=== PATIENT | female | born 1960 | race Caucasian/White ===

== ENCOUNTER 2017-10-08 15:47 | Inpatient (IN) | payer BC ==
[2017-10-08] MEDS ORDERED: Sodium Chloride 0.9% 10 ML Syringe FLUSH PRN (16:00)
[2017-10-08] MEDS ORDERED: Ondansetron 4 MG/2 ML SDV IVPUSH ONE (16:29)
[2017-10-08] MEDS ORDERED: Sodium Chloride 0.9% 1,000 ML IV SCH (16:45)
[2017-10-08] MEDS ORDERED: Iopamidol 755 Mg/ML 75 ML Bottle IV ONE (17:22)
[2017-10-08] MEDS ORDERED: Diatrizoate Meglumine/Diatrizoate Sodium 37% 30 ML Bottle PO SCH (17:30)
[2017-10-08] MEDS ORDERED: Lidocaine 2% Jelly 5 ML Urojet ONE (20:00)
[2017-10-08] MEDS ORDERED: Lidocaine 2% Jelly 30 ML Tube MUCMEM STA (20:00)
[2017-10-08] MEDS ORDERED: Pantoprazole 40 MG Vial IVPUSH SCH (20:15)
--- NOTE | 2017-10-08 20:21 | PCM.HP ---
H&P History of Present Illness - General Date of Service: 10/08/17 Admit Problem/Dx: Admission Diagnosis/Problem Admission Diagnosis/Problem Small bowel obstruction Source of Information: Patient History Limitations: Reports: No Limitations - History of Present Illness Duration of Symptoms: Reports: Day(s): (2 days ago), Intermittent Location: Reports: Abdomen Quality: Reports: Pressure Severity: Moderate Worsens with: Reports: Eating (or drinking) Associated Symptoms: Reports: Nausea/Vomiting (at least 6 times today and 10 times yesterday) mid abd Pain Score (Numeric/FACES): 2 - Related Data Allergies/Adverse Reactions: Allergies Allergy/AdvReac Type Severity Reaction Status Date / Time Latex, Natural Rubber Allergy Rash Verified 10/08/17 18:13 Sulfa (Sulfonamide Allergy Cannot Verified 10/08/17 15:50 Antibiotics) Remember Home Medications: Home Meds Levothyroxine Sodium 50 mcg PO DAILY 06/06/13 [History] Omeprazole 20 mg PO DAILY 06/09/13 [History] Lisinopril 10 mg PO DAILY 10/08/17 [History] Ranitidine HCl [Ranitidine] 150 mg PO BID PRN 10/08/17 [History] Past Medical History Cardiovascular History: Reports: Hypertension Gastrointestinal History: Reports: Bowel Obstruction - Past Surgical History GI Surgical History: Reports: Appendectomy (3rd grade), Cholecystectomy Female Surgical History: Reports: Hysterectomy Social & Family History - Family History Family Medical History: Noncontributory - Tobacco Use Smoking Status *Q: Never Smoker - Caffeine Use Caffeine Use: Reports: Coffee - Recreational Drug Use Recreational Drug Use: No H&P Review of Systems - Review of Systems: Review Of Systems: See Below General: Denies: Fever, Chills HEENT: Reports: No Symptoms Pulmonary: Reports: Shortness of Breath (mild) Cardiovascular: Reports: No Symptoms Gastrointestinal: Reports: Abdominal Pain, Nausea, Vomiting Genitourinary: Reports: No Symptoms Psychiatric: Reports: No Symptoms Neurological: Reports: No Symptoms Exam - Exam Exam: See Below - Vital Signs Vital Signs: Last Vital Signs Temp 98.1 F 10/08/17 15:47 Pulse 116 H 10/08/17 15:47 Resp 20 10/08/17 15:47 BP 120/71 10/08/17 15:47 Pulse Ox 99 10/08/17 15:47 Weight: 53.524 kg - Exam General: Alert, Oriented, Mild Distress Lungs: Clear to Auscultation, Normal Respiratory Effort Cardiovascular: Regular Rate, Regular Rhythm GI/Abdominal Exam: Soft, No Mass, Distended (mild), Tender (mild), Other (lower midline incisio well healed). No: Hernia - Patient Data Lab Results Last 24 hrs: Laboratory Results - last 24 hr 10/08/17 10/08/17 10/08/17 Range/Units 16:20 16:20 16:20 WBC 11.2 (4.5-12.0) X10-3/uL RBC 4.82 (3.23-5.20) x10(6)uL Hgb 15.1 (11.5-15.5) g/dL Hct 44.2 (30.0-51.3) % MCV 91.8 (80-96) fL MCH 31.3 (27.7-33.6) pg MCHC 34.1 (32.2-35.4) g/dL RDW 12.0 (11.5-15.5) % Plt Count 340 (125-369) X10(3)uL MPV 8.3 (7.4-10.4) fL Neut % (Auto) 79.3 (46-82) % Lymph % (Auto) 10.2 L (13-37) % [place] % (Auto) 8.7 (4-12) % Eos % (Auto) 0 L (1.0-5.0) % Baso % (Auto) 2 (0-2) % Neut # (Auto) 8.9 H (1.6-8.3) # Lymph # (Auto) 1.1 (0.6-5.0) # [place] # (Auto) 1.0 (0.0-1.3) # Eos # (Auto) 0.0 (0.0-0.8) # Baso # (Auto) 0.2 (0.0-0.2) # D-Dimer, Quantitative 3.05 H (0.0-0.59) mg/LFEU Sodium (135-145) mmol/L Potassium (3.5-5.3) mmol/L Chloride (100-110) mmol/L Carbon Dioxide (21-32) mmol/L BUN (7-18) mg/dL Creatinine (0.55-1.02) mg/dL Est Cr Clr Drug Dosing mL/min Estimated GFR (MDRD) (>60) BUN/Creatinine Ratio (9-20) Glucose (80-116) mg/dL Lactic Acid (0.4-2.2) mmol/L Calcium (8.6-10.2) mg/dL Total Bilirubin (0.1-1.3) mg/dL AST (5-25) IU/L ALT (12-36) U/L Alkaline Phosphatase (56-112) IU/L Troponin I < 0.017 L (<0.017-0.056) ng/mL C-Reactive Protein (0.5-0.9) mg/dL NT-Pro-B Natriuret Pep 116 (<=125) pg/mL Total Protein (6.0-8.0) g/dL Albumin (3.5-5.2) g/dL Globulin g/dL Albumin/Globulin Ratio TSH, Ultra Sensitive (0.36-3.74) IU/mL Urine Color (YELLOW) Urine Appearance (CLEAR) Urine pH (5.0-6.5) Ur Specific [place] (1.010-1.025) Urine Protein (NEGATIVE) mg/dL Urine Glucose (UA) (NEGATIVE) mg/dL Urine Ketones (NEGATIVE) mg/dL Urine Occult Blood (NEGATIVE) Urine Nitrite (NEGATIVE) Urine Bilirubin (NEGATIVE) Urine Urobilinogen (NEGATIVE) mg/dL Ur Leukocyte Esterase (NEGATIVE) Urine RBC (0) Urine WBC (0) Ur Squamous Epith Cells (NS,R,O) Urine Bacteria (NS) Urine Mucus (NS) 10/08/17 10/08/17 10/08/17 Range/Units 16:20 16:20 16:20 WBC (4.5-12.0) X10-3/uL RBC (3.23-5.20) x10(6)uL Hgb (11.5-15.5) g/dL Hct (30.0-51.3) % MCV (80-96) fL MCH (27.7-33.6) pg MCHC (32.2-35.4) g/dL RDW (11.5-15.5) % Plt Count (125-369) X10(3)uL MPV (7.4-10.4) fL Neut % (Auto) (46-82) % Lymph % (Auto) (13-37) % [place] % (Auto) (4-12) % Eos % (Auto) (1.0-5.0) % Baso % (Auto) (0-2) % Neut # (Auto) (1.6-8.3) # Lymph # (Auto) (0.6-5.0) # [place] # (Auto) (0.0-1.3) # Eos # (Auto) (0.0-0.8) # Baso # (Auto) (0.0-0.2) # D-Dimer, Quantitative (0.0-0.59) mg/LFEU Sodium 137 (135-145) mmol/L Potassium 3.3 L (3.5-5.3) mmol/L Chloride 96 L (100-110) mmol/L Carbon Dioxide 31 (21-32) mmol/L BUN 31 H (7-18) mg/dL Creatinine 0.8 (0.55-1.02) mg/dL Est Cr Clr Drug Dosing 67.14 mL/min Estimated GFR (MDRD) > 60 (>60) BUN/Creatinine Ratio 38.8 H (9-20) Glucose 120 H (80-116) mg/dL Lactic Acid 1.7 (0.4-2.2) mmol/L Calcium 9.9 (8.6-10.2) mg/dL Total Bilirubin 0.9 (0.1-1.3) mg/dL AST 15 (5-25) IU/L ALT 16 (12-36) U/L Alkaline Phosphatase 73 (56-112) IU/L Troponin I (<0.017-0.056) ng/mL C-Reactive Protein 0.2 L (0.5-0.9) mg/dL NT-Pro-B Natriuret Pep (<=125) pg/mL Total Protein 7.7 (6.0-8.0) g/dL Albumin 4.1 (3.5-5.2) g/dL Globulin 3.6 g/dL Albumin/Globulin Ratio 1.1 TSH, Ultra Sensitive (0.36-3.74) IU/mL Urine Color (YELLOW) Urine Appearance (CLEAR) Urine pH (5.0-6.5) Ur Specific [place] (1.010-1.025) Urine Protein (NEGATIVE) mg/dL Urine Glucose (UA) (NEGATIVE) mg/dL Urine Ketones (NEGATIVE) mg/dL Urine Occult Blood (NEGATIVE) Urine Nitrite (NEGATIVE) Urine Bilirubin (NEGATIVE) Urine Urobilinogen (NEGATIVE) mg/dL Ur Leukocyte Esterase (NEGATIVE) Urine RBC (0) Urine WBC (0) Ur Squamous Epith Cells (NS,R,O) Urine Bacteria (NS) Urine Mucus (NS) 10/08/17 10/08/17 Range/Units 16:20 19:14 WBC (4.5-12.0) X10-3/uL RBC (3.23-5.20) x10(6)uL Hgb (11.5-15.5) g/dL Hct (30.0-51.3) % MCV (80-96) fL MCH (27.7-33.6) pg MCHC (32.2-35.4) g/dL RDW (11.5-15.5) % Plt Count (125-369) X10(3)uL MPV (7.4-10.4) fL Neut % (Auto) (46-82) % Lymph % (Auto) (13-37) % [place] % (Auto) (4-12) % Eos % (Auto) (1.0-5.0) % Baso % (Auto) (0-2) % Neut # (Auto) (1.6-8.3) # Lymph # (Auto) (0.6-5.0) # [place] # (Auto) (0.0-1.3) # Eos # (Auto) (0.0-0.8) # Baso # (Auto) (0.0-0.2) # D-Dimer, Quantitative (0.0-0.59) mg/LFEU Sodium (135-145) mmol/L Potassium (3.5-5.3) mmol/L Chloride (100-110) mmol/L Carbon Dioxide (21-32) mmol/L BUN (7-18) mg/dL Creatinine (0.55-1.02) mg/dL Est Cr Clr Drug Dosing mL/min Estimated GFR (MDRD) (>60) BUN/Creatinine Ratio (9-20) Glucose (80-116) mg/dL Lactic Acid (0.4-2.2) mmol/L Calcium (8.6-10.2) mg/dL Total Bilirubin (0.1-1.3) mg/dL AST (5-25) IU/L ALT (12-36) U/L Alkaline Phosphatase (56-112) IU/L Troponin I (<0.017-0.056) ng/mL C-Reactive Protein (0.5-0.9) mg/dL NT-Pro-B Natriuret Pep (<=125) pg/mL Total Protein (6.0-8.0) g/dL Albumin (3.5-5.2) g/dL Globulin g/dL Albumin/Globulin Ratio TSH, Ultra Sensitive 1.14 (0.36-3.74) IU/mL Urine Color Yellow (YELLOW) Urine Appearance Clear (CLEAR) Urine pH 7.0 H (5.0-6.5) Ur Specific [place] 1.010 (1.010-1.025) Urine Protein Negative (NEGATIVE) mg/dL Urine Glucose (UA) Normal (NEGATIVE) mg/dL Urine Ketones 50 H (NEGATIVE) mg/dL Urine Occult Blood Moderate H (NEGATIVE) Urine Nitrite Negative (NEGATIVE) Urine Bilirubin Small H (NEGATIVE) Urine Urobilinogen Normal (NEGATIVE) mg/dL Ur Leukocyte Esterase Small H (NEGATIVE) Urine RBC 0-5 (0) Urine WBC 0-5 (0) Ur Squamous Epith Cells Occasional (NS,R,O) Urine Bacteria Rare H (NS) Urine Mucus Few H (NS) Result Diagrams: 10/08/17 16:20 10/08/17 16:20 Imaging Impressions Last 24 hrs: CT chest normal CT abd shows SBO Problem List Initiated/Reviewed/Updated: Yes Orders Last 24hrs: Active Orders 24 hr Category Date Time Status Patient Status [ADT] Routine ADT 10/08/17 19:59 Ordered Antiembolic Devices [RC] .Routine Care 10/08/17 20:05 Ordered EKG Documentation Completion [RC] ASDIRECTED Care 10/08/17 16:00 Active Gastrointestinal Tube Mgmt [RC] QSHIFT Care 10/08/17 20:01 Ordered Oxygen Therapy [RC] PRN Care 10/08/17 19:59 Ordered Oxygen Therapy [RC] PRN Care 10/08/17 20:01 Ordered RT Incentive Spirometry [RC] Q2HWA Care 10/08/17 20:01 Ordered Up ad Carla [RC] ASDIRECTED Care 10/08/17 20:01 Ordered VTE/DVT Education [RC] Click to Edit Care 10/08/17 20:05 Ordered Vital Signs [RC] PER UNIT ROUTINE Care 10/08/17 19:59 Ordered Abdomen Pelvis w Cont [CT] Stat Exams 10/08/17 15:59 Taken Ang Chest [CT] Stat Exams 10/08/17 16:00 Ordered BASIC METABOLIC PANEL,BMP [CHEM] AM Lab 10/09/17 05:11 Ordered CBC WITH AUTO DIFF [HEME] AM Lab 10/09/17 05:11 Ordered URINALYSIS W/MICROSCOPIC [UA W/MICROSCOPIC] [URIN] Stat Lab 10/08/17 19:14 Ordered Dextrose 5%-Normal Saline with KCl 20 mEq @ 150 mL/Hr ( Med 10/08/17 20:15 Ordered 1000 mL) Dextrose 5%-0.9% NaCl with KCl [D5 NS with 20 mEq KCl] 1,000 ml IV ASDIRECTED Diatrizoate Keena/Diatrizoate Na [Gastrografin 37%] Med 10/08/17 17:30 Active 30 ml PO . DIRECTED Pantoprazole [ProTONIX IV] Med 10/08/17 20:15 Ordered 40 mg IVPUSH DAILY Sodium Chloride 0.9% [Normal Saline] 1,000 ml Med 10/08/17 16:45 Active IV ASDIRECTED Sodium Chloride 0.9% [Saline Flush] Med 10/08/17 16:00 Active 10 ml FLUSH ASDIRECTED PRN DVT/VTE Prophylaxis Reflex [OM.PC] Per Unit Routine Oth 10/08/17 20:04 Ordered Peripheral IV Insertion Adult [OM.PC] Routine Oth 10/08/17 16:00 Ordered Sequential Compression Device [OM.PC] Routine Oth 10/08/17 20:01 Ordered Resuscitation Status Routine Resus Stat 10/08/17 19:59 Ordered EKG 12 Lead [EK] Routine Ther 10/08/17 15:59 Ordered Medication Orders Diatrizoate Meglum/Diatrizoate Sod (Gastrografin 37%) 30 ml PO . DIRECTED MAGY Last Admin: 10/08/17 18:22 Dose: 30 ml Sodium Chloride (Normal Saline) 1,000 mls @ 125 mls/hr IV ASDIRECTED MAGY Last Admin: 10/08/17 16:43 Dose: 125 mls/hr Potassium Chloride/Dextrose/Sod Cl (D5 Ns With 20 Meq Kcl) 1,000 mls @ 150 mls/ hr IV ASDIRECTED MAGY Pantoprazole Sodium (Protonix Iv) 40 mg IVPUSH DAILY MAGY Sodium Chloride (Saline Flush) 10 ml FLUSH ASDIRECTED PRN PRN Reason: Keep Vein Open Last Admin: 10/08/17 16:35 Dose: 10 ml Assessment/Plan Comment:: SBO Will admit for NG suction, IV hydration and pain control
[2017-10-08] MEDS: Dextrose 5%-0.9% NaCl with KCl 1,000 ML IV SCH (20:46)
[2017-10-08] MEDS: Ketorolac 30 MG/ML SDV IVPUSH PRN (20:47)
--- NOTE | 2017-10-09 01:27 | ER ---
DATE SEEN: 10/08/2017 CHIEF COMPLAINT: Vomiting. HISTORY OF PRESENT ILLNESS: This is a 57-year-old female with vomiting for 2 days, unable to keep anything down, and nausea. She also complains of mild-to- moderate abdominal pressure and inability to pass any stool over the last 2 days. REVIEW OF SYSTEMS: Shortness of breath since this afternoon. She denies any chest pain; neither does she have any fever, cough, or cold symptoms. ALLERGIES: Latex, natural rubber, and sulfa. PAST MEDICAL HISTORY: She has had small-bowel obstruction 13 or 14 years. PAST SURGICAL HISTORY: She is status post hysterectomy. PHYSICAL EXAMINATION: GENERAL: She is well nourished. She is mildly dehydrated. VITAL SIGNS: Her pulse is 116. Her blood pressure is normal. ENT: Normal. NECK: Supple. CHEST: Clear. ABDOMEN: Soft. Tender, especially in the right lower quadrant, but no rebound or masses are palpable. LABORATORIES: White cell count was normal, and hemoglobin was normal. D-dimer 3.05. UA was negative. RADIOGRAPHIC STUDIES: CT of the chest was unremarkable. No evidence of PE per the exam that was done today. CT of the abdomen showed a closed-loop bowel obstruction. IMPRESSION: Small-bowel obstruction. PLAN: My plan is to consult with Dr. Augustin. EMERGENCY DEPARTMENT COURSE: I started an IV line and gave 1 L of normal saline and IV Zofran. /[id number] 2012 [id number] STAN/JAMIEL
[2017-10-09] MEDS: Dextrose 5%-0.9% NaCl with KCl 1,000 ML IV SCH ×5 (03:27→23:37)
[2017-10-09] MEDS ORDERED: Promethazine 6.25 MG in Sodium Chloride 0.9% 50 ML IV PRN (09:29)
--- NOTE | 2017-10-09 09:34 | PCM.PN ---
- General Info Date of Service: 10/09/17 Functional Status: Reports: Urinating. Denies: Pain Controlled (still at 09/20) - Review of Systems Gastrointestinal: Reports: Abdominal Pain, Nausea (despite NG, functioning well) . Denies: Flatus - Patient Data Vitals - Most Recent: Last Vital Signs Temp 98.7 F 10/09/17 00:00 Pulse 84 10/09/17 00:00 Resp 16 10/09/17 00:00 BP 120/69 10/09/17 00:00 Pulse Ox 97 10/09/17 00:00 Weight - Most Recent: 51.846 kg I&O - Last 24 Hours: Intake & Output 10/08/17 10/09/17 10/09/17 22:59 06:59 14:59 Intake Total 656 1196 Output Total 100 325 Balance 556 871 Lab Results Last 24 Hours: Laboratory Results - last 24 hr 10/08/17 10/08/17 10/08/17 Range/Units 16:20 16:20 16:20 WBC 11.2 (4.5-12.0) X10-3/uL RBC 4.82 (3.23-5.20) x10(6)uL Hgb 15.1 (11.5-15.5) g/dL Hct 44.2 (30.0-51.3) % MCV 91.8 (80-96) fL MCH 31.3 (27.7-33.6) pg MCHC 34.1 (32.2-35.4) g/dL RDW 12.0 (11.5-15.5) % Plt Count 340 (125-369) X10(3)uL MPV 8.3 (7.4-10.4) fL Neut % (Auto) 79.3 (46-82) % Lymph % (Auto) 10.2 L (13-37) % [place] % (Auto) 8.7 (4-12) % Eos % (Auto) 0 L (1.0-5.0) % Baso % (Auto) 2 (0-2) % Neut # (Auto) 8.9 H (1.6-8.3) # Lymph # (Auto) 1.1 (0.6-5.0) # [place] # (Auto) 1.0 (0.0-1.3) # Eos # (Auto) 0.0 (0.0-0.8) # Baso # (Auto) 0.2 (0.0-0.2) # D-Dimer, Quantitative 3.05 H (0.0-0.59) mg/LFEU Sodium (135-145) mmol/L Potassium (3.5-5.3) mmol/L Chloride (100-110) mmol/L Carbon Dioxide (21-32) mmol/L BUN (7-18) mg/dL Creatinine (0.55-1.02) mg/dL Est Cr Clr Drug Dosing mL/min Estimated GFR (MDRD) (>60) BUN/Creatinine Ratio (9-20) Glucose (80-116) mg/dL Lactic Acid (0.4-2.2) mmol/L Calcium (8.6-10.2) mg/dL Total Bilirubin (0.1-1.3) mg/dL AST (5-25) IU/L ALT (12-36) U/L Alkaline Phosphatase (56-112) IU/L Troponin I < 0.017 L (<0.017-0.056) ng/mL C-Reactive Protein (0.5-0.9) mg/dL NT-Pro-B Natriuret Pep 116 (<=125) pg/mL Total Protein (6.0-8.0) g/dL Albumin (3.5-5.2) g/dL Globulin g/dL Albumin/Globulin Ratio TSH, Ultra Sensitive (0.36-3.74) IU/mL Urine Color (YELLOW) Urine Appearance (CLEAR) Urine pH (5.0-6.5) Ur Specific [place] (1.010-1.025) Urine Protein (NEGATIVE) mg/dL Urine Glucose (UA) (NEGATIVE) mg/dL Urine Ketones (NEGATIVE) mg/dL Urine Occult Blood (NEGATIVE) Urine Nitrite (NEGATIVE) Urine Bilirubin (NEGATIVE) Urine Urobilinogen (NEGATIVE) mg/dL Ur Leukocyte Esterase (NEGATIVE) Urine RBC (0) Urine WBC (0) Ur Squamous Epith Cells (NS,R,O) Urine Bacteria (NS) Urine Mucus (NS) 10/08/17 10/08/17 10/08/17 Range/Units 16:20 16:20 16:20 WBC (4.5-12.0) X10-3/uL RBC (3.23-5.20) x10(6)uL Hgb (11.5-15.5) g/dL Hct (30.0-51.3) % MCV (80-96) fL MCH (27.7-33.6) pg MCHC (32.2-35.4) g/dL RDW (11.5-15.5) % Plt Count (125-369) X10(3)uL MPV (7.4-10.4) fL Neut % (Auto) (46-82) % Lymph % (Auto) (13-37) % [place] % (Auto) (4-12) % Eos % (Auto) (1.0-5.0) % Baso % (Auto) (0-2) % Neut # (Auto) (1.6-8.3) # Lymph # (Auto) (0.6-5.0) # [place] # (Auto) (0.0-1.3) # Eos # (Auto) (0.0-0.8) # Baso # (Auto) (0.0-0.2) # D-Dimer, Quantitative (0.0-0.59) mg/LFEU Sodium 137 (135-145) mmol/L Potassium 3.3 L (3.5-5.3) mmol/L Chloride 96 L (100-110) mmol/L Carbon Dioxide 31 (21-32) mmol/L BUN 31 H (7-18) mg/dL Creatinine 0.8 (0.55-1.02) mg/dL Est Cr Clr Drug Dosing 67.14 mL/min Estimated GFR (MDRD) > 60 (>60) BUN/Creatinine Ratio 38.8 H (9-20) Glucose 120 H (80-116) mg/dL Lactic Acid 1.7 (0.4-2.2) mmol/L Calcium 9.9 (8.6-10.2) mg/dL Total Bilirubin 0.9 (0.1-1.3) mg/dL AST 15 (5-25) IU/L ALT 16 (12-36) U/L Alkaline Phosphatase 73 (56-112) IU/L Troponin I (<0.017-0.056) ng/mL C-Reactive Protein 0.2 L (0.5-0.9) mg/dL NT-Pro-B Natriuret Pep (<=125) pg/mL Total Protein 7.7 (6.0-8.0) g/dL Albumin 4.1 (3.5-5.2) g/dL Globulin 3.6 g/dL Albumin/Globulin Ratio 1.1 TSH, Ultra Sensitive (0.36-3.74) IU/mL Urine Color (YELLOW) Urine Appearance (CLEAR) Urine pH (5.0-6.5) Ur Specific [place] (1.010-1.025) Urine Protein (NEGATIVE) mg/dL Urine Glucose (UA) (NEGATIVE) mg/dL Urine Ketones (NEGATIVE) mg/dL Urine Occult Blood (NEGATIVE) Urine Nitrite (NEGATIVE) Urine Bilirubin (NEGATIVE) Urine Urobilinogen (NEGATIVE) mg/dL Ur Leukocyte Esterase (NEGATIVE) Urine RBC (0) Urine WBC (0) Ur Squamous Epith Cells (NS,R,O) Urine Bacteria (NS) Urine Mucus (NS) 10/08/17 10/08/17 10/09/17 Range/Units 16:20 19:14 06:30 WBC 7.2 (4.5-12.0) X10-3/uL RBC 4.16 (3.23-5.20) x10(6)uL Hgb 12.9 (11.5-15.5) g/dL Hct 38.2 (30.0-51.3) % MCV 91.9 (80-96) fL MCH 31.0 (27.7-33.6) pg MCHC 33.7 (32.2-35.4) g/dL RDW 11.6 (11.5-15.5) % Plt Count 232 (125-369) X10(3)uL MPV 8.3 (7.4-10.4) fL Neut % (Auto) 78.4 (46-82) % Lymph % (Auto) 10.4 L (13-37) % [place] % (Auto) 10.0 (4-12) % Eos % (Auto) 1 (1.0-5.0) % Baso % (Auto) 0 (0-2) % Neut # (Auto) 5.6 (1.6-8.3) # Lymph # (Auto) 0.8 (0.6-5.0) # [place] # (Auto) 0.7 (0.0-1.3) # Eos # (Auto) 0.1 (0.0-0.8) # Baso # (Auto) 0.0 (0.0-0.2) # D-Dimer, Quantitative (0.0-0.59) mg/LFEU Sodium (135-145) mmol/L Potassium (3.5-5.3) mmol/L Chloride (100-110) mmol/L Carbon Dioxide (21-32) mmol/L BUN (7-18) mg/dL Creatinine (0.55-1.02) mg/dL Est Cr Clr Drug Dosing mL/min Estimated GFR (MDRD) (>60) BUN/Creatinine Ratio (9-20) Glucose (80-116) mg/dL Lactic Acid (0.4-2.2) mmol/L Calcium (8.6-10.2) mg/dL Total Bilirubin (0.1-1.3) mg/dL AST (5-25) IU/L ALT (12-36) U/L Alkaline Phosphatase (56-112) IU/L Troponin I (<0.017-0.056) ng/mL C-Reactive Protein (0.5-0.9) mg/dL NT-Pro-B Natriuret Pep (<=125) pg/mL Total Protein (6.0-8.0) g/dL Albumin (3.5-5.2) g/dL Globulin g/dL Albumin/Globulin Ratio TSH, Ultra Sensitive 1.14 (0.36-3.74) IU/mL Urine Color Yellow (YELLOW) Urine Appearance Clear (CLEAR) Urine pH 7.0 H (5.0-6.5) Ur Specific [place] 1.010 (1.010-1.025) Urine Protein Negative (NEGATIVE) mg/dL Urine Glucose (UA) Normal (NEGATIVE) mg/dL Urine Ketones 50 H (NEGATIVE) mg/dL Urine Occult Blood Moderate H (NEGATIVE) Urine Nitrite Negative (NEGATIVE) Urine Bilirubin Small H (NEGATIVE) Urine Urobilinogen Normal (NEGATIVE) mg/dL Ur Leukocyte Esterase Small H (NEGATIVE) Urine RBC 0-5 (0) Urine WBC 0-5 (0) Ur Squamous Epith Cells Occasional (NS,R,O) Urine Bacteria Rare H (NS) Urine Mucus Few H (NS) 10/09/17 Range/Units 06:30 WBC (4.5-12.0) X10-3/uL RBC (3.23-5.20) x10(6)uL Hgb (11.5-15.5) g/dL Hct (30.0-51.3) % MCV (80-96) fL MCH (27.7-33.6) pg MCHC (32.2-35.4) g/dL RDW (11.5-15.5) % Plt Count (125-369) X10(3)uL MPV (7.4-10.4) fL Neut % (Auto) (46-82) % Lymph % (Auto) (13-37) % [place] % (Auto) (4-12) % Eos % (Auto) (1.0-5.0) % Baso % (Auto) (0-2) % Neut # (Auto) (1.6-8.3) # Lymph # (Auto) (0.6-5.0) # [place] # (Auto) (0.0-1.3) # Eos # (Auto) (0.0-0.8) # Baso # (Auto) (0.0-0.2) # D-Dimer, Quantitative (0.0-0.59) mg/LFEU Sodium 141 (135-145) mmol/L Potassium 3.9 (3.5-5.3) mmol/L Chloride 102 D (100-110) mmol/L Carbon Dioxide 33 H (21-32) mmol/L BUN 28 H (7-18) mg/dL Creatinine 0.8 (0.55-1.02) mg/dL Est Cr Clr Drug Dosing 65.03 mL/min Estimated GFR (MDRD) > 60 (>60) BUN/Creatinine Ratio 35.0 H (9-20) Glucose 140 H (80-116) mg/dL Lactic Acid (0.4-2.2) mmol/L Calcium 8.7 (8.6-10.2) mg/dL Total Bilirubin (0.1-1.3) mg/dL AST (5-25) IU/L ALT (12-36) U/L Alkaline Phosphatase (56-112) IU/L Troponin I (<0.017-0.056) ng/mL C-Reactive Protein (0.5-0.9) mg/dL NT-Pro-B Natriuret Pep (<=125) pg/mL Total Protein (6.0-8.0) g/dL Albumin (3.5-5.2) g/dL Globulin g/dL Albumin/Globulin Ratio TSH, Ultra Sensitive (0.36-3.74) IU/mL Urine Color (YELLOW) Urine Appearance (CLEAR) Urine pH (5.0-6.5) Ur Specific Aneta (1.010-1.025) Urine Protein (NEGATIVE) mg/dL Urine Glucose (UA) (NEGATIVE) mg/dL Urine Ketones (NEGATIVE) mg/dL Urine Occult Blood (NEGATIVE) Urine Nitrite (NEGATIVE) Urine Bilirubin (NEGATIVE) Urine Urobilinogen (NEGATIVE) mg/dL Ur Leukocyte Esterase (NEGATIVE) Urine RBC (0) Urine WBC (0) Ur Squamous Epith Cells (NS,R,O) Urine Bacteria (NS) Urine Mucus (NS) Med Orders - Current: Current Medications Potassium Chloride/Dextrose/Sod Cl (D5 Ns With 20 Meq Kcl) 1,000 mls @ 150 mls/ hr IV Q6H [facility] Promethazine HCl 6.25 mg/ (Sodium Chloride) 50.25 mls @ 200 mls/hr IV Q6H PRN PRN Reason: Nausea/Vomiting Ketorolac Tromethamine (Toradol) 30 mg IVPUSH Q6H PRN PRN Reason: Pain (moderate 4-6) Stop: 10/13/17 20:22 Last Admin: 10/08/17 20:47 Dose: 30 mg Pantoprazole Sodium (Protonix Iv) 40 mg IVPUSH DAILY@2100 [facility] Sodium Chloride (Saline Flush) 10 ml FLUSH ASDIRECTED PRN PRN Reason: Keep Vein Open Last Admin: 10/08/17 16:35 Dose: 10 ml Discontinued Medications Diatrizoate Meglum/Diatrizoate Sod (Gastrografin 37%) 30 ml PO . DIRECTED [facility] Last Admin: 10/08/17 18:22 Dose: 30 ml Sodium Chloride (Normal Saline) 1,000 mls @ 125 mls/hr IV ASDIRECTED [facility] Last Admin: 10/08/17 16:43 Dose: 125 mls/hr Potassium Chloride/Dextrose/Sod Cl (D5 Ns With 20 Meq Kcl) 1,000 mls @ 150 mls/ hr IV ASDIRECTED [facility] Last Admin: 10/09/17 03:27 Dose: 150 mls/hr Iopamidol (Isovue-370 (76%)) 75 ml IV ONETIME ONE Stop: 10/08/17 17:23 Last Admin: 10/08/17 18:22 Dose: 75 ml Lidocaine HCl (Xylocaine 2% Jelly) Confirm Administered Dose 5 ml .ROUTE .STK- MED ONE Stop: 10/08/17 20:01 Last Admin: 10/08/17 20:35 Dose: Not Given Lidocaine HCl (Xylocaine 2% Jelly) 5 ml MUCMEM NOW STA Stop: 10/08/17 20:01 Last Admin: 10/08/17 20:00 Dose: 5 ml Ondansetron HCl (Zofran) 8 mg IVPUSH ONETIME ONE Stop: 10/08/17 16:30 Last Admin: 10/08/17 16:35 Dose: 8 mg Pantoprazole Sodium (Protonix Iv) 40 mg IVPUSH DAILY [facility] Last Admin: 10/08/17 20:23 Dose: 40 mg - Exam General: Alert, Oriented Lungs: Clear to Auscultation, Normal Respiratory Effort GI/Abdominal Exam: Soft, Distended, Tender (mild lower) - Problem List Review Problem List Initiated/Reviewed/Updated: Yes - My Orders Last 24 Hours: My Active Orders 10/08/17 19:59 Patient Status [ADT] Routine Oxygen Therapy [RC] PRN Vital Signs [RC] .PRN Resuscitation Status Routine 10/08/17 20:01 Gastrointestinal Tube Mgmt [RC] 08,16,00 RT Incentive Spirometry [RC] Q2HWA Up ad Carla [RC] ASDIRECTED Sequential Compression Device [OM.PC] Routine 10/08/17 20:04 DVT/VTE Prophylaxis Reflex [OM.PC] Per Unit Routine 10/08/17 20:05 Antiembolic Devices [RC] .Routine 10/08/17 20:22 Ketorolac [Toradol] 30 mg IVPUSH Q6H PRN 10/08/17 20:23 Intake and Output [RC] 06,14,22 10/09/17 09:29 Promethazine [Phenergan] 6.25 mg Sodium Chloride 0.9% [Normal Saline] 50 ml IV Q6H 10/09/17 09:30 Dextrose 5%-0.9% NaCl with KCl [D5 NS with 20 mEq KCl] 1,000 ml IV Q6H 10/09/17 21:00 Pantoprazole [ProTONIX IV] 40 mg IVPUSH DAILY@2100 - Assessment Assessment:: SBO - Plan Plan:: No improvement since last pm Will take to IR or expl lap / adhesiolysis Risks and complications reviewed, consent obtained
[2017-10-09] MEDS ORDERED: Scopolamine 1.5 MG Transdermal Patch TRDERM PRN (09:57)
[2017-10-09] MEDS ORDERED: Ondansetron 4 MG/2 ML SDV IVPUSH ONE ×2 (10:30→11:45)
[2017-10-09] MEDS ORDERED: Scopolamine 1.5 MG Transdermal Patch TRDERM ONE (10:30)
[2017-10-09] MEDS: Ketorolac 30 MG/ML SDV IVPUSH PRN ×2 (10:32→17:00)
[2017-10-09] MEDS: Promethazine 6.25 MG in Sodium Chloride 0.9% 100 ML IV PRN (10:45)
[2017-10-09] MEDS: Lactated Ringers 1,000 ML IV SCH ×2 (11:05→14:17)
[2017-10-09] MEDS ORDERED: cefOXitin 2 GM Vial IV ONE ×2 (11:30→11:45)
[2017-10-09] MEDS ORDERED: cefOXitin 2 GM in Sodium Chloride 0.9% 100 ML IV ONE (11:30)
[2017-10-09] MEDS ORDERED: Midazolam 1 MG/ML 2 ML SDV IV ONE (11:45)
[2017-10-09] MEDS ORDERED: Lactated Ringers 1,000 ML IV ONE (11:45)
[2017-10-09] MEDS ORDERED: Neostigmine Methylsulfate 10 MG/10 ML MDV IVPUSH ONE (11:45)
[2017-10-09] MEDS ORDERED: fentaNYL 100 MCG/2 ML SDV IV ONE (11:45)
[2017-10-09] MEDS ORDERED: Propofol 200 MG/20 ML SDV IV ONE (11:45)
[2017-10-09] MEDS ORDERED: Rocuronium 100 MG/10 ML MDV IV ONE (11:45)
[2017-10-09] MEDS ORDERED: Glycopyrrolate 0.2 MG/ML 2 ML SDV IV ONE (11:45)
--- NOTE | 2017-10-09 13:15 | PCM.OPNOTE ---
- General Post-Op/Procedure Note Date of Surgery/Procedure: 10/09/17 Operative Procedure(s): Expl Lap with Adhesiolysis Findings: SBO from Adhesions Pre Op Diagnosis: SBO Post-Op Diagnosis: Same Anesthesia Technique: General ET Tube Primary Surgeon: Jadon Augustin EBL in mLs: 25 Complications: None Condition: Stable Free Text/Narrative:: Intake & Output 10/08/17 10/09/17 10/09/17 22:59 06:59 14:59 Intake Total 656 1196 658 Output Total 100 325 Balance 556 871 659
[2017-10-09] MEDS ORDERED: HYDROmorphone 2 MG/ML SDV IV ONE (13:30)
--- NOTE | 2017-10-09 15:01 | OR ---
DATE OF OPERATION: 10/09/2017 SURGEON: Jadon Augustin MD PREOPERATIVE DIAGNOSIS: Small bowel obstruction. POSTOPERATIVE DIAGNOSES: Small bowel obstruction secondary to adhesions. PROCEDURE: Exploratory laparotomy with adhesiolysis. ANESTHESIA: General. DESCRIPTION OF PROCEDURE: The patient was brought to the operating room, where general endotracheal anesthesia was administered. Time-out was performed. Sharpe catheter was inserted. Nasogastric tube was already in place. The abdomen was prepped with ChloraPrep and draped sterilely. A lower midline incision was made through her previous scar and extended into the peritoneal cavity. There were omental adhesions to the entire lower midline incision that were taken down with sharp dissection. Once this was freed up, there were some areas of transverse colon adhered to small bowel that were freed up. At that time, I could place the colon and omentum in the upper abdomen and concentrate on the small bowel and the lower abdomen. Approximately, 500 mL of ascites fluid was present. All bowel was viable. The bowel was dilated proximally. I could feel a band that was tight around the loop and sharply transected this. This freed up the bowel significantly, and this appeared to be the point of obstruction that had a 30-cm loop of bowel caught in it causing the closed-loop obstruction. An extensive adhesiolysis was undertaken to ensure that there were no other sources of bowel obstruction. This was freed up from the ligament of Treitz to the ileocecal area. All bowel was viable and healthy. Bowel contents were milked back into the stomach and approximately 500 mL was removed. This aided in returning the bowel back into the peritoneal cavity and allowed easier closure. The midline incision was closed with running #2 Prolene. Skin was closed with luigi. A sterile dressing was applied. The patient tolerated the procedure well. Estimated blood loss was 20 mL. She returned to Postanesthesia in a stable condition. /[id number] RYAN/YUVAL
[2017-10-09] MEDS: Morphine 10 MG/ML Syringe IVPUSH PRN ×3 (18:48→23:37)
[2017-10-09] MEDS: Pantoprazole 40 MG Vial IVPUSH SCH (21:14)
[2017-10-10] MEDS: Ketorolac 30 MG/ML SDV IVPUSH PRN ×4 (02:32→22:59)
[2017-10-10] MEDS: Dextrose 5%-0.9% NaCl with KCl 1,000 ML IV SCH ×5 (06:30→21:44)
[2017-10-10] MEDS ORDERED: Sodium Chloride 0.9% 1,000 ML IV STA (06:59)
[2017-10-10] MEDS: Morphine 10 MG/ML Syringe IVPUSH PRN (08:00)
[2017-10-10] MEDS: Enoxaparin 40 MG/0.4 ML Syringe SUBCUT SCH (13:13)
--- NOTE | 2017-10-10 13:57 | PCM.SURGPN ---
- General Info Date of Service: 10/10/17 POD#: 1 Functional Status: Reports: Pain Controlled, Incentive Spirometry - Review of Systems General: Reports: No Symptoms Pulmonary: Reports: No Symptoms Gastrointestinal: Denies: Abdominal Pain, Flatus - Patient Data Vitals - Most Recent: Last Vital Signs Temp 98.5 F 10/10/17 13:08 Pulse 87 10/10/17 13:08 Resp 16 10/10/17 13:08 BP 118/60 10/10/17 13:08 Pulse Ox 98 10/10/17 13:08 Weight - Most Recent: 51.846 kg I&O - Last 24 Hours: Intake & Output 10/09/17 10/10/17 10/10/17 22:59 06:59 14:59 Intake Total 1013 Output Total 700 Balance 313 Med Orders - Current: Current Medications Enoxaparin Sodium (Lovenox) 40 mg SUBCUT DAILY@1200 [facility] Last Admin: 10/10/17 13:13 Dose: 40 mg Potassium Chloride/Dextrose/Sod Cl (D5 Ns With 20 Meq Kcl) 1,000 mls @ 150 mls/ hr IV Q6H [facility] Last Admin: 10/10/17 13:04 Dose: 150 mls/hr Lactated Ringer's (Ringers, Lactated) 1,000 mls @ 0 mls/hr IV ASDIRECTED [facility] Last Admin: 10/09/17 14:17 Dose: 10 mls/hr Promethazine HCl 6.25 mg/ (Sodium Chloride) 100.25 mls @ 398.785 mls/hr IV Q6H PRN PRN Reason: Nausea/Vomiting Last Admin: 10/09/17 10:45 Dose: 398.785 mls/hr Ketorolac Tromethamine (Toradol) 30 mg IVPUSH Q6H PRN PRN Reason: Pain (moderate 4-6) Stop: 10/13/17 20:22 Last Admin: 10/10/17 10:40 Dose: 30 mg Morphine Sulfate (Morphine) 2 mg IVPUSH Q1H PRN PRN Reason: PAIN Last Admin: 10/10/17 08:00 Dose: 2 mg Pantoprazole Sodium (Protonix Iv) 40 mg IVPUSH DAILY@2100 [facility] Last Admin: 10/09/17 21:14 Dose: 40 mg Sodium Chloride (Saline Flush) 10 ml FLUSH ASDIRECTED PRN PRN Reason: Keep Vein Open Last Admin: 10/08/17 16:35 Dose: 10 ml Discontinued Medications Cefoxitin Sodium (Mefoxin) 2 gm IV ONETIME ONE Stop: 10/09/17 11:31 Last Admin: 10/09/17 14:04 Dose: Not Given Cefoxitin Sodium (Mefoxin) 2 gm IV .STK-MED ONE Stop: 10/09/17 11:46 Diatrizoate Meglum/Diatrizoate Sod (Gastrografin 37%) 30 ml PO . DIRECTED [facility] Last Admin: 10/08/17 18:22 Dose: 30 ml Fentanyl (Sublimaze) 200 mcg IV .STK-MED ONE Stop: 10/09/17 11:46 Glycopyrrolate (Glycopyrrolate) 0.4 mg IV .STK-MED ONE Stop: 10/09/17 11:46 Hydromorphone HCl (Dilaudid) 2 mg IV .STK-MED ONE Stop: 10/09/17 13:31 Sodium Chloride (Normal Saline) 1,000 mls @ 125 mls/hr IV ASDIRECTED [facility] Last Admin: 10/08/17 16:43 Dose: 125 mls/hr Potassium Chloride/Dextrose/Sod Cl (D5 Ns With 20 Meq Kcl) 1,000 mls @ 150 mls/ hr IV ASDIRECTED [facility] Last Admin: 10/09/17 03:27 Dose: 150 mls/hr Promethazine HCl 6.25 mg/ (Sodium Chloride) 50.25 mls @ 200 mls/hr IV Q6H PRN PRN Reason: Nausea/Vomiting Cefoxitin Sodium 2 gm/ Sodium (Chloride) 100 mls @ 200 mls/hr IV ONETIME ONE Stop: 10/09/17 11:59 Lactated Ringer's (Ringers, Lactated) 1,000 mls @ as directed IV .STK-MED ONE Stop: 10/09/17 11:46 Sodium Chloride (Normal Saline) 1,000 mls @ 250 mls/hr IV [facility] Stop: 10/10/17 10:58 Last Admin: 10/10/17 07:27 Dose: 250 mls/hr Iopamidol (Isovue-370 (76%)) 75 ml IV ONETIME ONE Stop: 10/08/17 17:23 Last Admin: 10/08/17 18:22 Dose: 75 ml Lidocaine HCl (Xylocaine 2% Jelly) Confirm Administered Dose 5 ml .ROUTE .STK- MED ONE Stop: 10/08/17 20:01 Last Admin: 10/08/17 20:35 Dose: Not Given Lidocaine HCl (Xylocaine 2% Jelly) 5 ml MUCMEM NOW STA Stop: 10/08/17 20:01 Last Admin: 10/08/17 20:00 Dose: 5 ml Midazolam HCl (Versed 1 Mg/Ml) 2 mg IV .STK-MED ONE Stop: 10/09/17 11:46 Neostigmine Methylsulfate (Neostigmine Methylsulfate) 2 mg IVPUSH .STK-MED ONE Stop: 10/09/17 11:46 Ondansetron HCl (Zofran) 8 mg IVPUSH ONETIME ONE Stop: 10/08/17 16:30 Last Admin: 10/08/17 16:35 Dose: 8 mg Ondansetron HCl (Zofran) 4 mg IVPUSH ONETIME ONE Stop: 10/09/17 10:31 Last Admin: 10/09/17 11:17 Dose: 4 mg Ondansetron HCl (Zofran) 4 mg IVPUSH .STK-MED ONE Stop: 10/09/17 11:46 Pantoprazole Sodium (Protonix Iv) 40 mg IVPUSH DAILY [facility] Last Admin: 10/08/17 20:23 Dose: 40 mg Propofol (Diprivan 20 Ml) 300 mg IV .STK-MED ONE Stop: 10/09/17 11:46 Rocuronium [place] (Zemuron) 50 mg IV .STK-MED ONE Stop: 10/09/17 11:46 Scopolamine (Transderm-Scop) 1.5 mg TRDERM Q72H PRN PRN Reason: Nausea Scopolamine (Transderm-Scop) 1.5 mg TRDERM ONETIME ONE Stop: 10/09/17 10:31 Last Admin: 10/09/17 10:42 Dose: 1.5 mg - Exam Wound/Incisions: Healing Well, Dressing Dry and Intact Lungs: Clear to Auscultation GI/Abdominal Exam: Soft, Non-Tender, Distended (mild) - Problem List Review Problem List Initiated/Reviewed/Updated: Yes - My Orders Last 24 Hours: Active Orders 24 hr Category Date Time Status DC Sharpe Catheter [Urinary Catheter Removal] [RC] Per Care 10/10/17 13:54 Active Unit Routine Enoxaparin [Lovenox] Med 10/10/17 12:00 Active 40 mg SUBCUT DAILY@1200 Morphine Med 10/09/17 18:17 Active 2 mg IVPUSH Q1H PRN Pantoprazole [ProTONIX IV] Med 10/09/17 21:00 Active 40 mg IVPUSH DAILY@2100 Medication Orders Enoxaparin Sodium (Lovenox) 40 mg SUBCUT DAILY@1200 [facility] Last Admin: 10/10/17 13:13 Dose: 40 mg Potassium Chloride/Dextrose/Sod Cl (D5 Ns With 20 Meq Kcl) 1,000 mls @ 150 mls/ hr IV Q6H [facility] Last Admin: 10/10/17 13:04 Dose: 150 mls/hr Infusion: 10/10/17 13:04 Dose: 150 mls/hr Admin: 10/10/17 06:30 Dose: 150 mls/hr Infusion: 10/10/17 06:18 Dose: 150 mls/hr Admin: 10/09/17 23:37 Dose: 150 mls/hr Infusion: 10/09/17 23:23 Dose: 150 mls/hr Admin: 10/09/17 22:38 Dose: Admin: 10/09/17 16:42 Dose: 150 mls/hr Admin: 10/09/17 14:20 Dose: Lactated Ringer's (Ringers, Lactated) 1,000 mls @ 0 mls/hr IV ASDIRECTED [facility] Last Admin: 10/09/17 14:17 Dose: 10 mls/hr Infusion: 10/09/17 14:17 Dose: 10 mls/hr Admin: 10/09/17 11:05 Dose: 10 mls/hr Promethazine HCl 6.25 mg/ (Sodium Chloride) 100.25 mls @ 398.785 mls/hr IV Q6H PRN PRN Reason: Nausea/Vomiting Last Admin: 10/09/17 10:45 Dose: 398.785 mls/hr Ketorolac Tromethamine (Toradol) 30 mg IVPUSH Q6H PRN PRN Reason: Pain (moderate 4-6) Stop: 10/13/17 20:22 Last Admin: 10/10/17 10:40 Dose: 30 mg Admin: 10/10/17 02:32 Dose: 30 mg Admin: 10/09/17 17:00 Dose: 30 mg Admin: 10/09/17 10:32 Dose: 30 mg Admin: 10/08/17 20:47 Dose: 30 mg Morphine Sulfate (Morphine) 2 mg IVPUSH Q1H PRN PRN Reason: PAIN Last Admin: 10/10/17 08:00 Dose: 2 mg Admin: 10/09/17 23:37 Dose: 2 mg Admin: 10/09/17 20:56 Dose: 2 mg Admin: 10/09/17 18:48 Dose: 2 mg Pantoprazole Sodium (Protonix Iv) 40 mg IVPUSH DAILY@2100 [facility] Last Admin: 10/09/17 21:14 Dose: 40 mg Sodium Chloride (Saline Flush) 10 ml FLUSH ASDIRECTED PRN PRN Reason: Keep Vein Open Last Admin: 10/08/17 16:35 Dose: 10 ml - Assessment Assessment (Free Text/Narrative):: Doing well POD #1 D/C [facility]
[2017-10-10] MEDS: Pantoprazole 40 MG Vial IVPUSH SCH (20:43)
[2017-10-11] MEDS: Dextrose 5%-0.9% NaCl with KCl 1,000 ML IV SCH ×3 (03:00→16:31)
[2017-10-11] MEDS: Ketorolac 30 MG/ML SDV IVPUSH PRN ×3 (05:18→22:33)
[2017-10-11] MEDS: Enoxaparin 40 MG/0.4 ML Syringe SUBCUT SCH (12:01)
--- NOTE | 2017-10-11 16:15 | PCM.SURGPN ---
- General Info Date of Service: 10/11/17 POD#: 2 Functional Status: Reports: Pain Controlled, Ambulating, Incentive Spirometry - Review of Systems General: Reports: Other (throat pain from NG starting to come out, I reinserted and secured) Pulmonary: Reports: No Symptoms Cardiovascular: Reports: No Symptoms Gastrointestinal: Denies: Flatus - Patient Data Vitals - Most Recent: Last Vital Signs Temp 98.2 F 10/11/17 07:50 Pulse 82 10/11/17 07:50 Resp 18 10/11/17 07:50 BP 116/60 10/11/17 07:50 Pulse Ox 96 10/11/17 07:50 Weight - Most Recent: 51.846 kg I&O - Last 24 Hours: Intake & Output 10/11/17 10/11/17 10/11/17 06:59 14:59 22:59 Intake Total 1177 1338 Output Total 475 600 Balance 702 738 Med Orders - Current: Current Medications Enoxaparin Sodium (Lovenox) 40 mg SUBCUT DAILY@1200 [facility] Last Admin: 10/11/17 12:01 Dose: 40 mg Potassium Chloride/Dextrose/Sod Cl (D5 Ns With 20 Meq Kcl) 1,000 mls @ 125 mls/ hr IV Q6H [facility] Last Admin: 10/11/17 09:46 Dose: 150 mls/hr Lactated Ringer's (Ringers, Lactated) 1,000 mls @ 0 mls/hr IV ASDIRECTED [facility] Last Admin: 10/09/17 14:17 Dose: 10 mls/hr Promethazine HCl 6.25 mg/ (Sodium Chloride) 100.25 mls @ 398.785 mls/hr IV Q6H PRN PRN Reason: Nausea/Vomiting Last Admin: 10/09/17 10:45 Dose: 398.785 mls/hr Ketorolac Tromethamine (Toradol) 30 mg IVPUSH Q6H PRN PRN Reason: Pain (moderate 4-6) Stop: 10/13/17 20:22 Last Admin: 10/11/17 05:18 Dose: 30 mg Morphine Sulfate (Morphine) 2 mg IVPUSH Q1H PRN PRN Reason: PAIN Last Admin: 10/10/17 08:00 Dose: 2 mg Pantoprazole Sodium (Protonix Iv) 40 mg IVPUSH DAILY@2100 [facility] Last Admin: 10/10/17 20:43 Dose: 40 mg Sodium Chloride (Saline Flush) 10 ml FLUSH ASDIRECTED PRN PRN Reason: Keep Vein Open Last Admin: 10/08/17 16:35 Dose: 10 ml Discontinued Medications Cefoxitin Sodium (Mefoxin) 2 gm IV ONETIME ONE Stop: 10/09/17 11:31 Last Admin: 10/09/17 14:04 Dose: Not Given Cefoxitin Sodium (Mefoxin) 2 gm IV .STK-MED ONE Stop: 10/09/17 11:46 Diatrizoate Meglum/Diatrizoate Sod (Gastrografin 37%) 30 ml PO . DIRECTED [facility] Last Admin: 10/08/17 18:22 Dose: 30 ml Fentanyl (Sublimaze) 200 mcg IV .STK-MED ONE Stop: 10/09/17 11:46 Glycopyrrolate (Glycopyrrolate) 0.4 mg IV .STK-MED ONE Stop: 10/09/17 11:46 Hydromorphone HCl (Dilaudid) 2 mg IV .STK-MED ONE Stop: 10/09/17 13:31 Sodium Chloride (Normal Saline) 1,000 mls @ 125 mls/hr IV ASDIRECTED [facility] Last Admin: 10/08/17 16:43 Dose: 125 mls/hr Potassium Chloride/Dextrose/Sod Cl (D5 Ns With 20 Meq Kcl) 1,000 mls @ 150 mls/ hr IV ASDIRECTED [facility] Last Admin: 10/09/17 03:27 Dose: 150 mls/hr Promethazine HCl 6.25 mg/ (Sodium Chloride) 50.25 mls @ 200 mls/hr IV Q6H PRN PRN Reason: Nausea/Vomiting Cefoxitin Sodium 2 gm/ Sodium (Chloride) 100 mls @ 200 mls/hr IV ONETIME ONE Stop: 10/09/17 11:59 Lactated Ringer's (Ringers, Lactated) 1,000 mls @ as directed IV .STK-MED ONE Stop: 10/09/17 11:46 Sodium Chloride (Normal Saline) 1,000 mls @ 250 mls/hr IV NOW STA Stop: 10/10/17 10:58 Last Admin: 10/10/17 07:27 Dose: 250 mls/hr Iopamidol (Isovue-370 (76%)) 75 ml IV ONETIME ONE Stop: 10/08/17 17:23 Last Admin: 10/08/17 18:22 Dose: 75 ml Lidocaine HCl (Xylocaine 2% Jelly) Confirm Administered Dose 5 ml .ROUTE .STK- MED ONE Stop: 10/08/17 20:01 Last Admin: 10/08/17 20:35 Dose: Not Given Lidocaine HCl (Xylocaine 2% Jelly) 5 ml MUCMEM NOW STA Stop: 10/08/17 20:01 Last Admin: 10/08/17 20:00 Dose: 5 ml Midazolam HCl (Versed 1 Mg/Ml) 2 mg IV .STK-MED ONE Stop: 10/09/17 11:46 Neostigmine Methylsulfate (Neostigmine Methylsulfate) 2 mg IVPUSH .STK-MED ONE Stop: 10/09/17 11:46 Ondansetron HCl (Zofran) 8 mg IVPUSH ONETIME ONE Stop: 10/08/17 16:30 Last Admin: 10/08/17 16:35 Dose: 8 mg Ondansetron HCl (Zofran) 4 mg IVPUSH ONETIME ONE Stop: 10/09/17 10:31 Last Admin: 10/09/17 11:17 Dose: 4 mg Ondansetron HCl (Zofran) 4 mg IVPUSH .STK-MED ONE Stop: 10/09/17 11:46 Pantoprazole Sodium (Protonix Iv) 40 mg IVPUSH DAILY [facility] Last Admin: 10/08/17 20:23 Dose: 40 mg Propofol (Diprivan 20 Ml) 300 mg IV .STK-MED ONE Stop: 10/09/17 11:46 Rocuronium [place] (Zemuron) 50 mg IV .STK-MED ONE Stop: 10/09/17 11:46 Scopolamine (Transderm-Scop) 1.5 mg TRDERM Q72H PRN PRN Reason: Nausea Scopolamine (Transderm-Scop) 1.5 mg TRDERM ONETIME ONE Stop: 10/09/17 10:31 Last Admin: 10/09/17 10:42 Dose: 1.5 mg - Exam Wound/Incisions: Healing Well, Dressing Dry and Intact Lungs: Clear to Auscultation GI/Abdominal Exam: Soft, Distended (moderately) - Problem List Review Problem List Initiated/Reviewed/Updated: Yes - My Orders Last 24 Hours: Active Orders 24 hr Category Date Time Status BASIC METABOLIC PANEL,BMP [CHEM] Routine Lab 10/12/17 06:00 Ordered CBC W/O DIFF,HEMOGRAM [HEME] Routine Lab 10/12/17 06:00 Ordered Medication Orders Enoxaparin Sodium (Lovenox) 40 mg SUBCUT DAILY@1200 [facility] Last Admin: 10/11/17 12:01 Dose: 40 mg Admin: 10/10/17 13:13 Dose: 40 mg Potassium Chloride/Dextrose/Sod Cl (D5 Ns With 20 Meq Kcl) 1,000 mls @ 125 mls/ hr IV Q6H [facility] Last Admin: 10/11/17 09:46 Dose: 150 mls/hr Infusion: 10/11/17 09:41 Dose: 150 mls/hr Admin: 10/11/17 03:00 Dose: 150 mls/hr Infusion: 10/11/17 02:32 Dose: 150 mls/hr Admin: 10/10/17 21:44 Dose: Admin: 10/10/17 19:51 Dose: 150 mls/hr Infusion: 10/10/17 19:45 Dose: 150 mls/hr Admin: 10/10/17 16:30 Dose: Admin: 10/10/17 13:04 Dose: 150 mls/hr Infusion: 10/10/17 13:04 Dose: 150 mls/hr Admin: 10/10/17 06:30 Dose: 150 mls/hr Infusion: 10/10/17 06:18 Dose: 150 mls/hr Admin: 10/09/17 23:37 Dose: 150 mls/hr Infusion: 10/09/17 23:23 Dose: 150 mls/hr Admin: 10/09/17 22:38 Dose: Admin: 10/09/17 16:42 Dose: 150 mls/hr Admin: 10/09/17 14:20 Dose: Lactated Ringer's (Ringers, Lactated) 1,000 mls @ 0 mls/hr IV ASDIRECTED [facility] Last Admin: 10/09/17 14:17 Dose: 10 mls/hr Infusion: 10/09/17 14:17 Dose: 10 mls/hr Admin: 10/09/17 11:05 Dose: 10 mls/hr Promethazine HCl 6.25 mg/ (Sodium Chloride) 100.25 mls @ 398.785 mls/hr IV Q6H PRN PRN Reason: Nausea/Vomiting Last Admin: 10/09/17 10:45 Dose: 398.785 mls/hr Ketorolac Tromethamine (Toradol) 30 mg IVPUSH Q6H PRN PRN Reason: Pain (moderate 4-6) Stop: 10/13/17 20:22 Last Admin: 10/11/17 05:18 Dose: 30 mg Admin: 10/10/17 22:59 Dose: 30 mg Admin: 10/10/17 16:25 Dose: 30 mg Admin: 10/10/17 10:40 Dose: 30 mg Admin: 10/10/17 02:32 Dose: 30 mg Admin: 10/09/17 17:00 Dose: 30 mg Admin: 10/09/17 10:32 Dose: 30 mg Admin: 10/08/17 20:47 Dose: 30 mg Morphine Sulfate (Morphine) 2 mg IVPUSH Q1H PRN PRN Reason: PAIN Last Admin: 10/10/17 08:00 Dose: 2 mg Admin: 10/09/17 23:37 Dose: 2 mg Admin: 10/09/17 20:56 Dose: 2 mg Admin: 10/09/17 18:48 Dose: 2 mg Pantoprazole Sodium (Protonix Iv) 40 mg IVPUSH DAILY@2100 [facility] Last Admin: 10/10/17 20:43 Dose: 40 mg Admin: 10/09/17 21:14 Dose: 40 mg Sodium Chloride (Saline Flush) 10 ml FLUSH ASDIRECTED PRN PRN Reason: Keep Vein Open Last Admin: 10/08/17 16:35 Dose: 10 ml - Assessment Assessment (Free Text/Narrative):: Doing Well POD #2 - Plan Plan (Free Text/Narrative):: Await bowel function Check labs in am
[2017-10-11] MEDS: Pantoprazole 40 MG Vial IVPUSH SCH (21:25)
[2017-10-12] MEDS: Dextrose 5%-0.9% NaCl with KCl 1,000 ML IV SCH ×4 (00:31→17:15)
[2017-10-12] MEDS: Ketorolac 30 MG/ML SDV IVPUSH PRN ×3 (05:12→23:37)
--- NOTE | 2017-10-12 12:17 | PCM.SURGPN ---
- General Info Date of Service: 10/12/17 POD#: 3 Functional Status: Reports: Pain Controlled, Ambulating, Urinating - Review of Systems General: Reports: No Symptoms Gastrointestinal: Reports: No Symptoms. Denies: Flatus - Patient Data Vitals - Most Recent: Last Vital Signs Temp 97.7 F 10/12/17 09:00 Pulse 85 10/12/17 09:00 Resp 18 10/12/17 09:00 BP 125/49 L 10/12/17 09:00 Pulse Ox 100 10/12/17 09:00 Weight - Most Recent: 51.846 kg I&O - Last 24 Hours: Intake & Output 10/11/17 10/12/17 10/12/17 22:59 06:59 14:59 Intake Total 935 998 Output Total 1000 775 200 Balance -65 223 -200 Lab Results Last 24 Hrs: Laboratory Results - last 24 hr 10/12/17 10/12/17 Range/Units 06:50 06:50 WBC 5.5 (4.5-12.0) X10-3/uL RBC 3.43 (3.23-5.20) x10(6)uL Hgb 10.7 L (11.5-15.5) g/dL Hct 31.8 (30.0-51.3) % MCV 92.8 (80-96) fL MCH 31.3 (27.7-33.6) pg MCHC 33.7 (32.2-35.4) g/dL RDW 11.6 (11.5-15.5) % Plt Count 195 (125-369) X10(3)uL Sodium 141 (135-145) mmol/L Potassium 3.6 (3.5-5.3) mmol/L Chloride 107 D (100-110) mmol/L Carbon Dioxide 27 (21-32) mmol/L BUN 4 L D (7-18) mg/dL Creatinine 0.5 L (0.55-1.02) mg/dL Est Cr Clr Drug Dosing 104.05 mL/min Estimated GFR (MDRD) > 60 (>60) BUN/Creatinine Ratio 8.0 L (9-20) Glucose 112 (80-116) mg/dL Calcium 8.3 L (8.6-10.2) mg/dL Med Orders - Current: Current Medications Enoxaparin Sodium (Lovenox) 40 mg SUBCUT DAILY@1200 [facility] Last Admin: 10/11/17 12:01 Dose: 40 mg Lactated Ringer's (Ringers, Lactated) 1,000 mls @ 0 mls/hr IV ASDIRECTED [facility] Last Admin: 10/09/17 14:17 Dose: 10 mls/hr Promethazine HCl 6.25 mg/ (Sodium Chloride) 100.25 mls @ 398.785 mls/hr IV Q6H PRN PRN Reason: Nausea/Vomiting Last Admin: 10/09/17 10:45 Dose: 398.785 mls/hr Potassium Chloride/Dextrose/Sod Cl (D5 Ns With 20 Meq Kcl) 1,000 mls @ 125 mls/ hr IV Q8H [facility] Last Admin: 10/12/17 09:02 Dose: 125 mls/hr Ketorolac Tromethamine (Toradol) 30 mg IVPUSH Q6H PRN PRN Reason: Pain (moderate 4-6) Stop: 10/13/17 20:22 Last Admin: 10/12/17 05:12 Dose: 30 mg Morphine Sulfate (Morphine) 2 mg IVPUSH Q1H PRN PRN Reason: PAIN Last Admin: 10/10/17 08:00 Dose: 2 mg Pantoprazole Sodium (Protonix Iv) 40 mg IVPUSH DAILY@2100 [facility] Last Admin: 10/11/17 21:25 Dose: 40 mg Sodium Chloride (Saline Flush) 10 ml FLUSH ASDIRECTED PRN PRN Reason: Keep Vein Open Last Admin: 10/08/17 16:35 Dose: 10 ml Discontinued Medications Cefoxitin Sodium (Mefoxin) 2 gm IV ONETIME ONE Stop: 10/09/17 11:31 Last Admin: 10/09/17 14:04 Dose: Not Given Cefoxitin Sodium (Mefoxin) 2 gm IV .STK-MED ONE Stop: 10/09/17 11:46 Diatrizoate Meglum/Diatrizoate Sod (Gastrografin 37%) 30 ml PO . DIRECTED [facility] Last Admin: 10/08/17 18:22 Dose: 30 ml Fentanyl (Sublimaze) 200 mcg IV .STK-MED ONE Stop: 10/09/17 11:46 Glycopyrrolate (Glycopyrrolate) 0.4 mg IV .STK-MED ONE Stop: 10/09/17 11:46 Hydromorphone HCl (Dilaudid) 2 mg IV .STK-MED ONE Stop: 10/09/17 13:31 Sodium Chloride (Normal Saline) 1,000 mls @ 125 mls/hr IV ASDIRECTED [facility] Last Admin: 10/08/17 16:43 Dose: 125 mls/hr Potassium Chloride/Dextrose/Sod Cl (D5 Ns With 20 Meq Kcl) 1,000 mls @ 150 mls/ hr IV ASDIRECTED [facility] Last Admin: 10/09/17 03:27 Dose: 150 mls/hr Potassium Chloride/Dextrose/Sod Cl (D5 Ns With 20 Meq Kcl) 1,000 mls @ 125 mls/ hr IV Q6H [facility] Stop: 10/12/17 08:29 Last Admin: 10/12/17 08:37 Dose: Not Given Promethazine HCl 6.25 mg/ (Sodium Chloride) 50.25 mls @ 200 mls/hr IV Q6H PRN PRN Reason: Nausea/Vomiting Cefoxitin Sodium 2 gm/ Sodium (Chloride) 100 mls @ 200 mls/hr IV ONETIME ONE Stop: 10/09/17 11:59 Lactated Ringer's (Ringers, Lactated) 1,000 mls @ as directed IV .STK-MED ONE Stop: 10/09/17 11:46 Sodium Chloride (Normal Saline) 1,000 mls @ 250 mls/hr IV NOW STA Stop: 10/10/17 10:58 Last Admin: 10/10/17 07:27 Dose: 250 mls/hr Iopamidol (Isovue-370 (76%)) 75 ml IV ONETIME ONE Stop: 10/08/17 17:23 Last Admin: 10/08/17 18:22 Dose: 75 ml Lidocaine HCl (Xylocaine 2% Jelly) Confirm Administered Dose 5 ml .ROUTE .STK- MED ONE Stop: 10/08/17 20:01 Last Admin: 10/08/17 20:35 Dose: Not Given Lidocaine HCl (Xylocaine 2% Jelly) 5 ml MUCMEM NOW STA Stop: 10/08/17 20:01 Last Admin: 10/08/17 20:00 Dose: 5 ml Midazolam HCl (Versed 1 Mg/Ml) 2 mg IV .STK-MED ONE Stop: 10/09/17 11:46 Neostigmine Methylsulfate (Neostigmine Methylsulfate) 2 mg IVPUSH .STK-MED ONE Stop: 10/09/17 11:46 Ondansetron HCl (Zofran) 8 mg IVPUSH ONETIME ONE Stop: 10/08/17 16:30 Last Admin: 10/08/17 16:35 Dose: 8 mg Ondansetron HCl (Zofran) 4 mg IVPUSH ONETIME ONE Stop: 10/09/17 10:31 Last Admin: 10/09/17 11:17 Dose: 4 mg Ondansetron HCl (Zofran) 4 mg IVPUSH .STK-MED ONE Stop: 10/09/17 11:46 Pantoprazole Sodium (Protonix Iv) 40 mg IVPUSH DAILY [facility] Last Admin: 10/08/17 20:23 Dose: 40 mg Propofol (Diprivan 20 Ml) 300 mg IV .STK-MED ONE Stop: 10/09/17 11:46 Rocuronium [place] (Zemuron) 50 mg IV .STK-MED ONE Stop: 10/09/17 11:46 Scopolamine (Transderm-Scop) 1.5 mg TRDERM Q72H PRN PRN Reason: Nausea Scopolamine (Transderm-Scop) 1.5 mg TRDERM ONETIME ONE Stop: 10/09/17 10:31 Last Admin: 10/09/17 10:42 Dose: 1.5 mg - Exam Wound/Incisions: Healing Well, Dressing Dry and Intact General: Alert, Oriented Lungs: Clear to Auscultation GI/Abdominal Exam: Soft, Non-Tender - Problem List Review Problem List Initiated/Reviewed/Updated: Yes - My Orders Last 24 Hours: Active Orders 24 hr Category Date Time Status Dextrose 5%-0.9% NaCl with KCl [D5 NS with 20 mEq KCl] Med 10/12/17 08:30 Active 1,000 ml IV Q8H Medication Orders Enoxaparin Sodium (Lovenox) 40 mg SUBCUT DAILY@1200 [facility] Last Admin: 10/11/17 12:01 Dose: 40 mg Admin: 10/10/17 13:13 Dose: 40 mg Lactated Ringer's (Ringers, Lactated) 1,000 mls @ 0 mls/hr IV ASDIRECTED [facility] Last Admin: 10/09/17 14:17 Dose: 10 mls/hr Infusion: 10/09/17 14:17 Dose: 10 mls/hr Admin: 10/09/17 11:05 Dose: 10 mls/hr Promethazine HCl 6.25 mg/ (Sodium Chloride) 100.25 mls @ 398.785 mls/hr IV Q6H PRN PRN Reason: Nausea/Vomiting Last Admin: 10/09/17 10:45 Dose: 398.785 mls/hr Potassium Chloride/Dextrose/Sod Cl (D5 Ns With 20 Meq Kcl) 1,000 mls @ 125 mls/ hr IV Q8H [facility] Last Admin: 10/12/17 09:02 Dose: 125 mls/hr Ketorolac Tromethamine (Toradol) 30 mg IVPUSH Q6H PRN PRN Reason: Pain (moderate 4-6) Stop: 10/13/17 20:22 Last Admin: 10/12/17 05:12 Dose: 30 mg Admin: 10/11/17 22:33 Dose: 30 mg Admin: 10/11/17 16:39 Dose: 30 mg Admin: 10/11/17 05:18 Dose: 30 mg Admin: 10/10/17 22:59 Dose: 30 mg Admin: 10/10/17 16:25 Dose: 30 mg Admin: 10/10/17 10:40 Dose: 30 mg Admin: 10/10/17 02:32 Dose: 30 mg Admin: 10/09/17 17:00 Dose: 30 mg Admin: 10/09/17 10:32 Dose: 30 mg Admin: 10/08/17 20:47 Dose: 30 mg Morphine Sulfate (Morphine) 2 mg IVPUSH Q1H PRN PRN Reason: PAIN Last Admin: 10/10/17 08:00 Dose: 2 mg Admin: 10/09/17 23:37 Dose: 2 mg Admin: 10/09/17 20:56 Dose: 2 mg Admin: 10/09/17 18:48 Dose: 2 mg Pantoprazole Sodium (Protonix Iv) 40 mg IVPUSH DAILY@2100 [facility] Last Admin: 10/11/17 21:25 Dose: 40 mg Admin: 10/10/17 20:43 Dose: 40 mg Admin: 10/09/17 21:14 Dose: 40 mg Sodium Chloride (Saline Flush) 10 ml FLUSH ASDIRECTED PRN PRN Reason: Keep Vein Open Last Admin: 10/08/17 16:35 Dose: 10 ml - Assessment Assessment (Free Text/Narrative):: Doing well POD #3 - Plan Plan (Free Text/Narrative):: Await Bowel Function
[2017-10-12] MEDS: Enoxaparin 40 MG/0.4 ML Syringe SUBCUT SCH (13:15)
[2017-10-12] MEDS: Pantoprazole 40 MG Vial IVPUSH SCH (21:23)
[2017-10-13] MEDS: Dextrose 5%-0.9% NaCl with KCl 1,000 ML IV SCH ×3 (00:30→15:45)
[2017-10-13] MEDS: Ketorolac 30 MG/ML SDV IVPUSH PRN ×2 (07:48→17:07)
--- NOTE | 2017-10-13 10:08 | PCM.SURGPN ---
- General Info Date of Service: 10/13/17 Functional Status: Denies: New Symptoms - Review of Systems Pulmonary: Reports: No Symptoms Cardiovascular: Reports: No Symptoms Gastrointestinal: Reports: Other (did have a bowel movment today ) - Patient Data Vitals - Most Recent: Last Vital Signs Temp 36.8 C 10/13/17 03:37 Pulse 97 10/13/17 03:37 Resp 18 10/13/17 03:37 BP 142/77 H 10/13/17 03:37 Pulse Ox 97 10/13/17 03:37 Weight - Most Recent: 51.846 kg I&O - Last 24 Hours: Intake & Output 10/12/17 10/13/17 10/13/17 22:59 06:59 14:59 Intake Total 995 911 Output Total 1050 850 150 Balance -55 61 -150 Med Orders - Current: Current Medications Enoxaparin Sodium (Lovenox) 40 mg SUBCUT DAILY@1200 [facility] Last Admin: 10/12/17 13:15 Dose: 40 mg Lactated Ringer's (Ringers, Lactated) 1,000 mls @ 0 mls/hr IV ASDIRECTED [facility] Last Admin: 10/09/17 14:17 Dose: 10 mls/hr Promethazine HCl 6.25 mg/ (Sodium Chloride) 100.25 mls @ 398.785 mls/hr IV Q6H PRN PRN Reason: Nausea/Vomiting Last Admin: 10/09/17 10:45 Dose: 398.785 mls/hr Potassium Chloride/Dextrose/Sod Cl (D5 Ns With 20 Meq Kcl) 1,000 mls @ 125 mls/ hr IV Q8H [facility] Last Admin: 10/13/17 07:50 Dose: 125 mls/hr Ketorolac Tromethamine (Toradol) 30 mg IVPUSH Q6H PRN PRN Reason: Pain (moderate 4-6) Stop: 10/13/17 20:22 Last Admin: 10/13/17 07:48 Dose: 30 mg Morphine Sulfate (Morphine) 2 mg IVPUSH Q1H PRN PRN Reason: PAIN Last Admin: 10/10/17 08:00 Dose: 2 mg Pantoprazole Sodium (Protonix Iv) 40 mg IVPUSH DAILY@2100 [facility] Last Admin: 10/12/17 21:23 Dose: 40 mg Sodium Chloride (Saline Flush) 10 ml FLUSH ASDIRECTED PRN PRN Reason: Keep Vein Open Last Admin: 10/08/17 16:35 Dose: 10 ml Discontinued Medications Cefoxitin Sodium (Mefoxin) 2 gm IV ONETIME ONE Stop: 10/09/17 11:31 Last Admin: 10/09/17 14:04 Dose: Not Given Cefoxitin Sodium (Mefoxin) 2 gm IV .STK-MED ONE Stop: 10/09/17 11:46 Diatrizoate Meglum/Diatrizoate Sod (Gastrografin 37%) 30 ml PO . DIRECTED [facility] Last Admin: 10/08/17 18:22 Dose: 30 ml Fentanyl (Sublimaze) 200 mcg IV .STK-MED ONE Stop: 10/09/17 11:46 Glycopyrrolate (Glycopyrrolate) 0.4 mg IV .STK-MED ONE Stop: 10/09/17 11:46 Hydromorphone HCl (Dilaudid) 2 mg IV .STK-MED ONE Stop: 10/09/17 13:31 Sodium Chloride (Normal Saline) 1,000 mls @ 125 mls/hr IV ASDIRECTED [facility] Last Admin: 10/08/17 16:43 Dose: 125 mls/hr Potassium Chloride/Dextrose/Sod Cl (D5 Ns With 20 Meq Kcl) 1,000 mls @ 150 mls/ hr IV ASDIRECTED [facility] Last Admin: 10/09/17 03:27 Dose: 150 mls/hr Potassium Chloride/Dextrose/Sod Cl (D5 Ns With 20 Meq Kcl) 1,000 mls @ 125 mls/ hr IV Q6H [facility] Stop: 10/12/17 08:29 Last Admin: 10/12/17 08:37 Dose: Not Given Promethazine HCl 6.25 mg/ (Sodium Chloride) 50.25 mls @ 200 mls/hr IV Q6H PRN PRN Reason: Nausea/Vomiting Cefoxitin Sodium 2 gm/ Sodium (Chloride) 100 mls @ 200 mls/hr IV ONETIME ONE Stop: 10/09/17 11:59 Lactated Ringer's (Ringers, Lactated) 1,000 mls @ as directed IV .STK-MED ONE Stop: 10/09/17 11:46 Sodium Chloride (Normal Saline) 1,000 mls @ 250 mls/hr IV NOW STA Stop: 10/10/17 10:58 Last Admin: 10/10/17 07:27 Dose: 250 mls/hr Iopamidol (Isovue-370 (76%)) 75 ml IV ONETIME ONE Stop: 10/08/17 17:23 Last Admin: 10/08/17 18:22 Dose: 75 ml Lidocaine HCl (Xylocaine 2% Jelly) Confirm Administered Dose 5 ml .ROUTE .STK- MED ONE Stop: 10/08/17 20:01 Last Admin: 10/08/17 20:35 Dose: Not Given Lidocaine HCl (Xylocaine 2% Jelly) 5 ml MUCMEM NOW STA Stop: 10/08/17 20:01 Last Admin: 10/08/17 20:00 Dose: 5 ml Midazolam HCl (Versed 1 Mg/Ml) 2 mg IV .STK-MED ONE Stop: 10/09/17 11:46 Neostigmine Methylsulfate (Neostigmine Methylsulfate) 2 mg IVPUSH .STK-MED ONE Stop: 10/09/17 11:46 Ondansetron HCl (Zofran) 8 mg IVPUSH ONETIME ONE Stop: 10/08/17 16:30 Last Admin: 10/08/17 16:35 Dose: 8 mg Ondansetron HCl (Zofran) 4 mg IVPUSH ONETIME ONE Stop: 10/09/17 10:31 Last Admin: 10/09/17 11:17 Dose: 4 mg Ondansetron HCl (Zofran) 4 mg IVPUSH .STK-MED ONE Stop: 10/09/17 11:46 Pantoprazole Sodium (Protonix Iv) 40 mg IVPUSH DAILY [facility] Last Admin: 10/08/17 20:23 Dose: 40 mg Propofol (Diprivan 20 Ml) 300 mg IV .STK-MED ONE Stop: 10/09/17 11:46 Rocuronium [place] (Zemuron) 50 mg IV .STK-MED ONE Stop: 10/09/17 11:46 Scopolamine (Transderm-Scop) 1.5 mg TRDERM Q72H PRN PRN Reason: Nausea Scopolamine (Transderm-Scop) 1.5 mg TRDERM ONETIME ONE Stop: 10/09/17 10:31 Last Admin: 10/09/17 10:42 Dose: 1.5 mg - Exam Wound/Incisions: Healing Well, No Drainage. No: Erythema Lungs: Clear to Auscultation, Normal Respiratory Effort Cardiovascular: Regular Rate, Regular Rhythm GI/Abdominal Exam: Distended (mild ), Tender (along the incision ), Abnormal Bowel Sounds (hypoactive ). No: Guarding, Rigid, Rebound Skin: Warm, Intact - Problem List & Annotations (1) Small bowel obstruction due to adhesions SNOMED Code(s): 408332607 Code(s): K56.50 - INTESTNL ADHESIONS, UNSP TO PARTIAL VERSUS COMPLETE OBST Status: Resolved Current Visit: Yes - Problem List Review Problem List Initiated/Reviewed/Updated: Yes - My Orders Last 24 Hours: Active Orders 24 hr Category Date Time Status Ambulate [RC] Q4HNV Care 10/13/17 10:06 Ordered Medication Orders Enoxaparin Sodium (Lovenox) 40 mg SUBCUT DAILY@1200 [facility] Last Admin: 10/12/17 13:15 Dose: 40 mg Admin: 10/11/17 12:01 Dose: 40 mg Admin: 10/10/17 13:13 Dose: 40 mg Lactated Ringer's (Ringers, Lactated) 1,000 mls @ 0 mls/hr IV ASDIRECTED [facility] Last Admin: 10/09/17 14:17 Dose: 10 mls/hr Infusion: 10/09/17 14:17 Dose: 10 mls/hr Admin: 10/09/17 11:05 Dose: 10 mls/hr Promethazine HCl 6.25 mg/ (Sodium Chloride) 100.25 mls @ 398.785 mls/hr IV Q6H PRN PRN Reason: Nausea/Vomiting Last Admin: 10/09/17 10:45 Dose: 398.785 mls/hr Potassium Chloride/Dextrose/Sod Cl (D5 Ns With 20 Meq Kcl) 1,000 mls @ 125 mls/ hr IV Q8H [facility] Last Admin: 10/13/17 07:50 Dose: 125 mls/hr Infusion: 10/13/17 07:50 Dose: 125 mls/hr Admin: 10/13/17 00:30 Dose: 125 mls/hr Infusion: 10/13/17 00:30 Dose: 125 mls/hr Admin: 10/12/17 17:15 Dose: 125 mls/hr Infusion: 10/12/17 17:02 Dose: 125 mls/hr Admin: 10/12/17 09:02 Dose: 125 mls/hr Ketorolac Tromethamine (Toradol) 30 mg IVPUSH Q6H PRN PRN Reason: Pain (moderate 4-6) Stop: 10/13/17 20:22 Last Admin: 10/13/17 07:48 Dose: 30 mg Admin: 10/12/17 23:37 Dose: 30 mg Admin: 10/12/17 17:14 Dose: 30 mg Admin: 10/12/17 05:12 Dose: 30 mg Admin: 10/11/17 22:33 Dose: 30 mg Admin: 10/11/17 16:39 Dose: 30 mg Admin: 10/11/17 05:18 Dose: 30 mg Admin: 10/10/17 22:59 Dose: 30 mg Admin: 10/10/17 16:25 Dose: 30 mg Admin: 10/10/17 10:40 Dose: 30 mg Admin: 10/10/17 02:32 Dose: 30 mg Admin: 10/09/17 17:00 Dose: 30 mg Admin: 10/09/17 10:32 Dose: 30 mg Admin: 10/08/17 20:47 Dose: 30 mg Morphine Sulfate (Morphine) 2 mg IVPUSH Q1H PRN PRN Reason: PAIN Last Admin: 10/10/17 08:00 Dose: 2 mg Admin: 10/09/17 23:37 Dose: 2 mg Admin: 10/09/17 20:56 Dose: 2 mg Admin: 10/09/17 18:48 Dose: 2 mg Pantoprazole Sodium (Protonix Iv) 40 mg IVPUSH DAILY@2100 [facility] Last Admin: 10/12/17 21:23 Dose: 40 mg Admin: 10/11/17 21:25 Dose: 40 mg Admin: 10/10/17 20:43 Dose: 40 mg Admin: 10/09/17 21:14 Dose: 40 mg Sodium Chloride (Saline Flush) 10 ml FLUSH ASDIRECTED PRN PRN Reason: Keep Vein Open Last Admin: 10/08/17 16:35 Dose: 10 ml - Assessment Assessment (Free Text/Narrative):: Though she has had a bowel movement still has some mild distention and her bowel sounds are a little quite. - Plan Plan (Free Text/Narrative):: will continue ice chips for now ambulate
[2017-10-13] MEDS: Enoxaparin 40 MG/0.4 ML Syringe SUBCUT SCH (11:31)
[2017-10-13] MEDS: Promethazine 6.25 MG in Sodium Chloride 0.9% 100 ML IV PRN (18:56)
[2017-10-13] MEDS: Pantoprazole 40 MG Vial IVPUSH SCH (21:22)
[2017-10-14] MEDS: Dextrose 5%-0.9% NaCl with KCl 1,000 ML IV SCH ×2 (00:11→07:36)
--- NOTE | 2017-10-14 08:39 | PCM.SURGPN ---
- General Info Date of Service: 10/14/17 Functional Status: Reports: Pain Controlled, Ambulating, Urinating - Review of Systems Pulmonary: Reports: No Symptoms Cardiovascular: Reports: No Symptoms Gastrointestinal: Reports: Flatus - Patient Data Vitals - Most Recent: Last Vital Signs Temp 36.7 C 10/14/17 07:36 Pulse 91 10/14/17 07:36 Resp 20 10/14/17 07:36 BP 132/80 10/14/17 07:36 Pulse Ox 98 10/14/17 07:36 Weight - Most Recent: 51.846 kg I&O - Last 24 Hours: Intake & Output 10/13/17 10/14/17 10/14/17 22:59 06:59 14:59 Intake Total 923 992 Output Total 900 700 Balance 23 292 Med Orders - Current: Current Medications Enoxaparin Sodium (Lovenox) 40 mg SUBCUT DAILY@1200 [facility] Last Admin: 10/13/17 11:31 Dose: 40 mg Lactated Ringer's (Ringers, Lactated) 1,000 mls @ 0 mls/hr IV ASDIRECTED [facility] Last Admin: 10/09/17 14:17 Dose: 10 mls/hr Promethazine HCl 6.25 mg/ (Sodium Chloride) 100.25 mls @ 398.785 mls/hr IV Q6H PRN PRN Reason: Nausea/Vomiting Last Admin: 10/13/17 18:56 Dose: 398.785 mls/hr Potassium Chloride/Dextrose/Sod Cl (D5 Ns With 20 Meq Kcl) 1,000 mls @ 125 mls/ hr IV Q8H [facility] Last Admin: 10/14/17 07:36 Dose: 125 mls/hr Morphine Sulfate (Morphine) 2 mg IVPUSH Q1H PRN PRN Reason: PAIN Last Admin: 10/10/17 08:00 Dose: 2 mg Pantoprazole Sodium (Protonix Iv) 40 mg IVPUSH DAILY@2100 [facility] Last Admin: 10/13/17 21:22 Dose: 40 mg Sodium Chloride (Saline Flush) 10 ml FLUSH ASDIRECTED PRN PRN Reason: Keep Vein Open Last Admin: 10/08/17 16:35 Dose: 10 ml Discontinued Medications Cefoxitin Sodium (Mefoxin) 2 gm IV ONETIME ONE Stop: 10/09/17 11:31 Last Admin: 10/09/17 14:04 Dose: Not Given Cefoxitin Sodium (Mefoxin) 2 gm IV .STK-MED ONE Stop: 10/09/17 11:46 Diatrizoate Meglum/Diatrizoate Sod (Gastrografin 37%) 30 ml PO . DIRECTED [facility] Last Admin: 10/08/17 18:22 Dose: 30 ml Fentanyl (Sublimaze) 200 mcg IV .STK-MED ONE Stop: 10/09/17 11:46 Glycopyrrolate (Glycopyrrolate) 0.4 mg IV .STK-MED ONE Stop: 10/09/17 11:46 Hydromorphone HCl (Dilaudid) 2 mg IV .STK-MED ONE Stop: 10/09/17 13:31 Sodium Chloride (Normal Saline) 1,000 mls @ 125 mls/hr IV ASDIRECTED [facility] Last Admin: 10/08/17 16:43 Dose: 125 mls/hr Potassium Chloride/Dextrose/Sod Cl (D5 Ns With 20 Meq Kcl) 1,000 mls @ 150 mls/ hr IV ASDIRECTED [facility] Last Admin: 10/09/17 03:27 Dose: 150 mls/hr Potassium Chloride/Dextrose/Sod Cl (D5 Ns With 20 Meq Kcl) 1,000 mls @ 125 mls/ hr IV Q6H [facility] Stop: 10/12/17 08:29 Last Admin: 10/12/17 08:37 Dose: Not Given Promethazine HCl 6.25 mg/ (Sodium Chloride) 50.25 mls @ 200 mls/hr IV Q6H PRN PRN Reason: Nausea/Vomiting Cefoxitin Sodium 2 gm/ Sodium (Chloride) 100 mls @ 200 mls/hr IV ONETIME ONE Stop: 10/09/17 11:59 Lactated Ringer's (Ringers, Lactated) 1,000 mls @ as directed IV .STK-MED ONE Stop: 10/09/17 11:46 Sodium Chloride (Normal Saline) 1,000 mls @ 250 mls/hr IV NOW STA Stop: 10/10/17 10:58 Last Admin: 10/10/17 07:27 Dose: 250 mls/hr Iopamidol (Isovue-370 (76%)) 75 ml IV ONETIME ONE Stop: 10/08/17 17:23 Last Admin: 10/08/17 18:22 Dose: 75 ml Ketorolac Tromethamine (Toradol) 30 mg IVPUSH Q6H PRN PRN Reason: Pain (moderate 4-6) Stop: 10/13/17 20:22 Last Admin: 10/13/17 17:07 Dose: 30 mg Lidocaine HCl (Xylocaine 2% Jelly) Confirm Administered Dose 5 ml .ROUTE .STK- MED ONE Stop: 10/08/17 20:01 Last Admin: 10/08/17 20:35 Dose: Not Given Lidocaine HCl (Xylocaine 2% Jelly) 5 ml MUCMEM NOW STA Stop: 10/08/17 20:01 Last Admin: 10/08/17 20:00 Dose: 5 ml Midazolam HCl (Versed 1 Mg/Ml) 2 mg IV .STK-MED ONE Stop: 10/09/17 11:46 Neostigmine Methylsulfate (Neostigmine Methylsulfate) 2 mg IVPUSH .STK-MED ONE Stop: 10/09/17 11:46 Ondansetron HCl (Zofran) 8 mg IVPUSH ONETIME ONE Stop: 10/08/17 16:30 Last Admin: 10/08/17 16:35 Dose: 8 mg Ondansetron HCl (Zofran) 4 mg IVPUSH ONETIME ONE Stop: 10/09/17 10:31 Last Admin: 10/09/17 11:17 Dose: 4 mg Ondansetron HCl (Zofran) 4 mg IVPUSH .STK-MED ONE Stop: 10/09/17 11:46 Pantoprazole Sodium (Protonix Iv) 40 mg IVPUSH DAILY [facility] Last Admin: 10/08/17 20:23 Dose: 40 mg Propofol (Diprivan 20 Ml) 300 mg IV .STK-MED ONE Stop: 10/09/17 11:46 Rocuronium [place] (Zemuron) 50 mg IV .STK-MED ONE Stop: 10/09/17 11:46 Scopolamine (Transderm-Scop) 1.5 mg TRDERM Q72H PRN PRN Reason: Nausea Scopolamine (Transderm-Scop) 1.5 mg TRDERM ONETIME ONE Stop: 10/09/17 10:31 Last Admin: 10/09/17 10:42 Dose: 1.5 mg - Exam Wound/Incisions: Healing Well, Dressing Dry and Intact Lungs: Clear to Auscultation, Normal Respiratory Effort Cardiovascular: Regular Rate, Regular Rhythm GI/Abdominal Exam: Normal Bowel Sounds, Soft. No: Distended (much better ) - Problem List & Annotations (1) Small bowel obstruction due to adhesions SNOMED Code(s): 083574421 Code(s): K56.50 - INTESTNL ADHESIONS, UNSP TO PARTIAL VERSUS COMPLETE OBST Status: Resolved Current Visit: Yes - Problem List Review Problem List Initiated/Reviewed/Updated: Yes - My Orders Last 24 Hours: Active Orders 24 hr Category Date Time Status Ambulate [RC] Q4HHI Care 10/13/17 10:06 Active Medication Orders Enoxaparin Sodium (Lovenox) 40 mg SUBCUT DAILY@1200 [facility] Last Admin: 10/13/17 11:31 Dose: 40 mg Admin: 10/12/17 13:15 Dose: 40 mg Admin: 10/11/17 12:01 Dose: 40 mg Admin: 10/10/17 13:13 Dose: 40 mg Lactated Ringer's (Ringers, Lactated) 1,000 mls @ 0 mls/hr IV ASDIRECTED [facility] Last Admin: 10/09/17 14:17 Dose: 10 mls/hr Infusion: 10/09/17 14:17 Dose: 10 mls/hr Admin: 10/09/17 11:05 Dose: 10 mls/hr Promethazine HCl 6.25 mg/ (Sodium Chloride) 100.25 mls @ 398.785 mls/hr IV Q6H PRN PRN Reason: Nausea/Vomiting Last Admin: 10/13/17 18:56 Dose: 398.785 mls/hr Admin: 10/09/17 10:45 Dose: 398.785 mls/hr Potassium Chloride/Dextrose/Sod Cl (D5 Ns With 20 Meq Kcl) 1,000 mls @ 125 mls/ hr IV Q8H [facility] Last Admin: 10/14/17 07:36 Dose: 125 mls/hr Infusion: 10/14/17 07:36 Dose: 125 mls/hr Admin: 10/14/17 00:11 Dose: 125 mls/hr Infusion: 10/13/17 23:45 Dose: 125 mls/hr Admin: 10/13/17 15:45 Dose: 125 mls/hr Infusion: 10/13/17 15:45 Dose: 125 mls/hr Admin: 10/13/17 07:50 Dose: 125 mls/hr Infusion: 10/13/17 07:50 Dose: 125 mls/hr Admin: 10/13/17 00:30 Dose: 125 mls/hr Infusion: 10/13/17 00:30 Dose: 125 mls/hr Admin: 10/12/17 17:15 Dose: 125 mls/hr Infusion: 10/12/17 17:02 Dose: 125 mls/hr Admin: 10/12/17 09:02 Dose: 125 mls/hr Morphine Sulfate (Morphine) 2 mg IVPUSH Q1H PRN PRN Reason: PAIN Last Admin: 10/10/17 08:00 Dose: 2 mg Admin: 10/09/17 23:37 Dose: 2 mg Admin: 10/09/17 20:56 Dose: 2 mg Admin: 10/09/17 18:48 Dose: 2 mg Pantoprazole Sodium (Protonix Iv) 40 mg IVPUSH DAILY@2100 [facility] Last Admin: 10/13/17 21:22 Dose: 40 mg Admin: 10/12/17 21:23 Dose: 40 mg Admin: 10/11/17 21:25 Dose: 40 mg Admin: 10/10/17 20:43 Dose: 40 mg Admin: 10/09/17 21:14 Dose: 40 mg Sodium Chloride (Saline Flush) 10 ml FLUSH ASDIRECTED PRN PRN Reason: Keep Vein Open Last Admin: 10/08/17 16:35 Dose: 10 ml - Assessment Assessment (Free Text/Narrative):: marked improvement of bowel function - Plan Plan (Free Text/Narrative):: advance diet saline lock iv allow to shower.
[2017-10-14] MEDS ORDERED: Calcium Carbonate 750 MG Tab.Chew PO PRN (09:10)
[2017-10-14] MEDS ORDERED: Acetaminophen/HYDROcodone 325-5 MG Tab PO PRN (09:11)
[2017-10-14] MEDS: Promethazine 6.25 MG in Sodium Chloride 0.9% 100 ML IV PRN (09:35)
[2017-10-14] MEDS: Enoxaparin 40 MG/0.4 ML Syringe SUBCUT SCH (11:42)
[2017-10-14] MEDS ORDERED: Calcium Carbonate 500 MG Tab.Chew ONE (14:39)
[2017-10-14] MEDS ORDERED: Ondansetron 4 MG/2 ML SDV IVPUSH PRN (16:22)
[2017-10-14] MEDS ORDERED: D5 1/2 NS w/ 20 mEq/L KCl 1,000 ML ONE (16:37)
[2017-10-14] MEDS: D5 1/2 NS w/ 20 mEq/L KCl 1,000 ML IV SCH (16:51)
[2017-10-14] MEDS: Morphine 10 MG/ML Syringe IVPUSH PRN (21:07)
[2017-10-14] MEDS: Pantoprazole 40 MG Vial IVPUSH SCH (21:10)
[2017-10-15] MEDS: Morphine 10 MG/ML Syringe IVPUSH PRN (00:26)
[2017-10-15] MEDS: D5 1/2 NS w/ 20 mEq/L KCl 1,000 ML IV SCH ×2 (05:42→19:04)
[2017-10-15] MEDS ORDERED: Ketorolac 30 MG/ML SDV IVPUSH PRN (08:21)
[2017-10-15] MEDS: Metoclopramide 10 MG/2 ML SDV IVPUSH PRN ×2 (10:12→16:25)
[2017-10-15] MEDS: Enoxaparin 40 MG/0.4 ML Syringe SUBCUT SCH (13:09)
--- NOTE | 2017-10-15 16:17 | PCM.SURGPN ---
- General Info Date of Service: 10/15/17 POD#: 6 Functional Status: Reports: Pain Controlled - Review of Systems General: Reports: No Symptoms Gastrointestinal: Reports: Flatus, Other (No BM) - Patient Data Vitals - Most Recent: Last Vital Signs Temp 97.6 F 10/15/17 13:43 Pulse 66 10/15/17 13:43 Resp 20 10/15/17 13:43 BP 137/59 L 10/15/17 13:43 Pulse Ox 91 L 10/15/17 13:43 Weight - Most Recent: 51.846 kg I&O - Last 24 Hours: Intake & Output 10/15/17 10/15/17 10/15/17 06:59 14:59 22:59 Intake Total 577 680 Output Total 450 900 Balance 127 -220 Lab Results Last 24 Hrs: Laboratory Results - last 24 hr 10/15/17 10/15/17 Range/Units 08:35 08:35 WBC 4.6 (4.5-12.0) X10-3/uL RBC 3.66 (3.23-5.20) x10(6)uL Hgb 11.2 L (11.5-15.5) g/dL Hct 33.8 (30.0-51.3) % MCV 92.3 (80-96) fL MCH 30.6 (27.7-33.6) pg MCHC 33.1 (32.2-35.4) g/dL RDW 11.8 (11.5-15.5) % Plt Count 293 (125-369) X10(3)uL MPV 7.7 (7.4-10.4) fL Neut % (Auto) 63.7 (46-82) % Lymph % (Auto) 20.5 (13-37) % Gillespie % (Auto) 10.0 (4-12) % Eos % (Auto) 5 (1.0-5.0) % Baso % (Auto) 1 (0-2) % Neut # (Auto) 3.0 (1.6-8.3) # Lymph # (Auto) 0.9 (0.6-5.0) # Gillespie # (Auto) 0.5 (0.0-1.3) # Eos # (Auto) 0.2 (0.0-0.8) # Baso # (Auto) 0.0 (0.0-0.2) # Sodium 141 (135-145) mmol/L Potassium 3.7 (3.5-5.3) mmol/L Chloride 104 (100-110) mmol/L Carbon Dioxide 33 H (21-32) mmol/L BUN 4 L (7-18) mg/dL Creatinine 0.7 (0.55-1.02) mg/dL Est Cr Clr Drug Dosing 74.32 mL/min Estimated GFR (MDRD) > 60 (>60) BUN/Creatinine Ratio 5.7 L (9-20) Glucose 113 (80-116) mg/dL Calcium 8.8 (8.6-10.2) mg/dL Med Orders - Current: Current Medications Calcium Carbonate/Glycine (Tums Extra Strength) 750 mg PO Q2H PRN PRN Reason: Indigestion Last Admin: 10/14/17 14:41 Dose: 750 mg Enoxaparin Sodium (Lovenox) 40 mg SUBCUT DAILY@1200 [facility] Last Admin: 10/15/17 13:09 Dose: 40 mg Promethazine HCl 6.25 mg/ (Sodium Chloride) 100.25 mls @ 398.785 mls/hr IV Q6H PRN PRN Reason: Nausea/Vomiting Last Admin: 10/14/17 09:35 Dose: 398.785 mls/hr Potassium Chloride/Dextrose/Sod Cl (D5 1/2 Ns W/ 20 Meq/L Kcl) 1,000 mls @ 75 mls/hr IV ASDIRECTED [facility] Stop: 10/15/17 18:59 Last Admin: 10/15/17 05:42 Dose: 75 mls/hr Potassium Chloride/Dextrose/Sod Cl (D5 1/2 Ns W/ 20 Meq/L Kcl) 1,000 mls @ 75 mls/hr IV Q13H [facility] Ketorolac Tromethamine (Toradol) 30 mg IVPUSH Q6H PRN PRN Reason: Pain Stop: 10/20/17 08:22 Metoclopramide HCl (Reglan) 5 mg IVPUSH Q6H PRN PRN Reason: Nausea Last Admin: 10/15/17 10:12 Dose: 5 mg Ondansetron HCl (Zofran) 8 mg IVPUSH Q8H PRN PRN Reason: Nausea/Vomiting Last Admin: 10/14/17 16:51 Dose: 8 mg Pantoprazole Sodium (Protonix Iv) 40 mg IVPUSH DAILY@2100 [facility] Last Admin: 10/14/17 21:10 Dose: 40 mg Discontinued Medications Hydrocodone Bitart/Acetaminophen ([place] 325-5 Mg) 1 tab PO Q4H PRN PRN Reason: Pain Last Admin: 10/15/17 05:42 Dose: 1 tab Calcium Carbonate/Glycine (Tums) Confirm Administered Dose 1,000 mg .ROUTE .STK- MED ONE Stop: 10/14/17 14:40 Last Admin: 10/14/17 14:48 Dose: Not Given Cefoxitin Sodium (Mefoxin) 2 gm IV ONETIME ONE Stop: 10/09/17 11:31 Last Admin: 10/09/17 14:04 Dose: Not Given Cefoxitin Sodium (Mefoxin) 2 gm IV .STK-MED ONE Stop: 10/09/17 11:46 Diatrizoate Meglum/Diatrizoate Sod (Gastrografin 37%) 30 ml PO . DIRECTED [facility] Last Admin: 10/08/17 18:22 Dose: 30 ml Fentanyl (Sublimaze) 200 mcg IV .STK-MED ONE Stop: 10/09/17 11:46 Glycopyrrolate (Glycopyrrolate) 0.4 mg IV .STK-MED ONE Stop: 10/09/17 11:46 Hydromorphone HCl (Dilaudid) 2 mg IV .STK-MED ONE Stop: 10/09/17 13:31 Sodium Chloride (Normal Saline) 1,000 mls @ 125 mls/hr IV ASDIRECTED [facility] Last Admin: 10/08/17 16:43 Dose: 125 mls/hr Potassium Chloride/Dextrose/Sod Cl (D5 Ns With 20 Meq Kcl) 1,000 mls @ 150 mls/ hr IV ASDIRECTED [facility] Last Admin: 10/09/17 03:27 Dose: 150 mls/hr Potassium Chloride/Dextrose/Sod Cl (D5 Ns With 20 Meq Kcl) 1,000 mls @ 125 mls/ hr IV Q6H [facility] Stop: 10/12/17 08:29 Last Admin: 10/12/17 08:37 Dose: Not Given Promethazine HCl 6.25 mg/ (Sodium Chloride) 50.25 mls @ 200 mls/hr IV Q6H PRN PRN Reason: Nausea/Vomiting Lactated Ringer's (Ringers, Lactated) 1,000 mls @ 0 mls/hr IV ASDIRECTED [facility] Last Admin: 10/09/17 14:17 Dose: 10 mls/hr Cefoxitin Sodium 2 gm/ Sodium (Chloride) 100 mls @ 200 mls/hr IV ONETIME ONE Stop: 10/09/17 11:59 Lactated Ringer's (Ringers, Lactated) 1,000 mls @ as directed IV .STK-MED ONE Stop: 10/09/17 11:46 Sodium Chloride (Normal Saline) 1,000 mls @ 250 mls/hr IV NOW STA Stop: 10/10/17 10:58 Last Admin: 10/10/17 07:27 Dose: 250 mls/hr Potassium Chloride/Dextrose/Sod Cl (D5 Ns With 20 Meq Kcl) 1,000 mls @ 125 mls/ hr IV Q8H [facility] Last Admin: 10/14/17 07:36 Dose: 125 mls/hr Potassium Chloride/Dextrose/Sod Cl (D5 1/2 Ns W/ 20 Meq/L Kcl) Confirm Administered Dose 1,000 mls @ as directed .ROUTE .STK-MED ONE Stop: 10/14/17 16:38 Last Admin: 10/14/17 16:56 Dose: Not Given Iopamidol (Isovue-370 (76%)) 75 ml IV ONETIME ONE Stop: 10/08/17 17:23 Last Admin: 10/08/17 18:22 Dose: 75 ml Ketorolac Tromethamine (Toradol) 30 mg IVPUSH Q6H PRN PRN Reason: Pain (moderate 4-6) Stop: 10/13/17 20:22 Last Admin: 10/13/17 17:07 Dose: 30 mg Lidocaine HCl (Xylocaine 2% Jelly) Confirm Administered Dose 5 ml .ROUTE .STK- MED ONE Stop: 10/08/17 20:01 Last Admin: 10/08/17 20:35 Dose: Not Given Lidocaine HCl (Xylocaine 2% Jelly) 5 ml MUCMEM NOW STA Stop: 10/08/17 20:01 Last Admin: 10/08/17 20:00 Dose: 5 ml Midazolam HCl (Versed 1 Mg/Ml) 2 mg IV .STK-MED ONE Stop: 10/09/17 11:46 Morphine Sulfate (Morphine) 2 mg IVPUSH Q1H PRN PRN Reason: PAIN Last Admin: 10/15/17 00:26 Dose: 2 mg Neostigmine Methylsulfate (Neostigmine Methylsulfate) 2 mg IVPUSH .STK-MED ONE Stop: 10/09/17 11:46 Ondansetron HCl (Zofran) 8 mg IVPUSH ONETIME ONE Stop: 10/08/17 16:30 Last Admin: 10/08/17 16:35 Dose: 8 mg Ondansetron HCl (Zofran) 4 mg IVPUSH ONETIME ONE Stop: 10/09/17 10:31 Last Admin: 10/09/17 11:17 Dose: 4 mg Ondansetron HCl (Zofran) 4 mg IVPUSH .STK-MED ONE Stop: 10/09/17 11:46 Pantoprazole Sodium (Protonix Iv) 40 mg IVPUSH DAILY [facility] Last Admin: 10/08/17 20:23 Dose: 40 mg Propofol (Diprivan 20 Ml) 300 mg IV .STK-MED ONE Stop: 10/09/17 11:46 Rocuronium [place] (Zemuron) 50 mg IV .STK-MED ONE Stop: 10/09/17 11:46 Scopolamine (Transderm-Scop) 1.5 mg TRDERM Q72H PRN PRN Reason: Nausea Scopolamine (Transderm-Scop) 1.5 mg TRDERM ONETIME ONE Stop: 10/09/17 10:31 Last Admin: 10/09/17 10:42 Dose: 1.5 mg Sodium Chloride (Saline Flush) 10 ml FLUSH ASDIRECTED PRN PRN Reason: Keep Vein Open Last Admin: 10/08/17 16:35 Dose: 10 ml - Exam Wound/Incisions: Healing Well, Dressing Dry and Intact Lungs: Clear to Auscultation GI/Abdominal Exam: Soft, Non-Tender. No: Distended - Problem List Review Problem List Initiated/Reviewed/Updated: Yes - My Orders Last 24 Hours: Active Orders 24 hr Category Date Time Status Clear Liquid Diet [DIET] Diet 10/15/17 Dinner Ordered D5 1/2 NS w/ 20 mEq/L KCl 1,000 ml Med 10/14/17 16:30 Active IV ASDIRECTED D5 1/2 NS w/ 20 mEq/L KCl 1,000 ml Med 10/15/17 19:00 Active IV Q13H Ketorolac [Toradol] Med 10/15/17 08:21 Active 30 mg IVPUSH Q6H PRN Metoclopramide [Reglan] Med 10/15/17 09:49 Active 5 mg IVPUSH Q6H PRN Ondansetron [Zofran] Med 10/14/17 16:22 Active 8 mg IVPUSH Q8H PRN Medication Orders Calcium Carbonate/Glycine (Tums Extra Strength) 750 mg PO Q2H PRN PRN Reason: Indigestion Last Admin: 10/14/17 14:41 Dose: 750 mg Enoxaparin Sodium (Lovenox) 40 mg SUBCUT DAILY@1200 [facility] Last Admin: 10/15/17 13:09 Dose: 40 mg Admin: 10/14/17 11:42 Dose: 40 mg Admin: 10/13/17 11:31 Dose: 40 mg Admin: 10/12/17 13:15 Dose: 40 mg Admin: 10/11/17 12:01 Dose: 40 mg Admin: 10/10/17 13:13 Dose: 40 mg Promethazine HCl 6.25 mg/ (Sodium Chloride) 100.25 mls @ 398.785 mls/hr IV Q6H PRN PRN Reason: Nausea/Vomiting Last Admin: 10/14/17 09:35 Dose: 398.785 mls/hr Admin: 10/13/17 18:56 Dose: 398.785 mls/hr Admin: 10/09/17 10:45 Dose: 398.785 mls/hr Potassium Chloride/Dextrose/Sod Cl (D5 1/2 Ns W/ 20 Meq/L Kcl) 1,000 mls @ 75 mls/hr IV ASDIRECTED [facility] Stop: 10/15/17 18:59 Last Admin: 10/15/17 05:42 Dose: 75 mls/hr Infusion: 10/15/17 05:42 Dose: 75 mls/hr Admin: 10/14/17 16:51 Dose: 75 mls/hr Potassium Chloride/Dextrose/Sod Cl (D5 1/2 Ns W/ 20 Meq/L Kcl) 1,000 mls @ 75 mls/hr IV Q13H [facility] Ketorolac Tromethamine (Toradol) 30 mg IVPUSH Q6H PRN PRN Reason: Pain Stop: 10/20/17 08:22 Metoclopramide HCl (Reglan) 5 mg IVPUSH Q6H PRN PRN Reason: Nausea Last Admin: 10/15/17 10:12 Dose: 5 mg Ondansetron HCl (Zofran) 8 mg IVPUSH Q8H PRN PRN Reason: Nausea/Vomiting Last Admin: 10/14/17 16:51 Dose: 8 mg Pantoprazole Sodium (Protonix Iv) 40 mg IVPUSH DAILY@2100 [facility] Last Admin: 10/14/17 21:10 Dose: 40 mg Admin: 10/13/17 21:22 Dose: 40 mg Admin: 10/12/17 21:23 Dose: 40 mg Admin: 10/11/17 21:25 Dose: 40 mg Admin: 10/10/17 20:43 Dose: 40 mg Admin: 10/09/17 21:14 Dose: 40 mg - Assessment Assessment (Free Text/Narrative):: Doing well, ileus resolving - Plan Plan (Free Text/Narrative):: Start Cl Liquids
[2017-10-15] MEDS: Pantoprazole 40 MG Vial IVPUSH SCH (21:00)
[2017-10-16] MEDS: Metoclopramide 10 MG/2 ML SDV IVPUSH PRN ×2 (07:32→16:00)
--- NOTE | 2017-10-16 09:22 | PCM.SURGPN ---
- General Info Date of Service: 10/16/17 POD#: 7 Functional Status: Reports: Pain Controlled, Tolerating Diet - Review of Systems General: Reports: No Symptoms Gastrointestinal: Reports: No Symptoms, Flatus, Other (BM this am) - Patient Data Vitals - Most Recent: Last Vital Signs Temp 98 F 10/16/17 02:00 Pulse 94 10/16/17 02:00 Resp 18 10/16/17 02:00 BP 134/71 10/16/17 02:00 Pulse Ox 97 10/16/17 02:00 Weight - Most Recent: 51.846 kg I&O - Last 24 Hours: Intake & Output 10/15/17 10/16/17 10/16/17 22:59 06:59 14:59 Intake Total 519 530 Output Total 300 900 Balance 219 -370 Med Orders - Current: Current Medications Calcium Carbonate/Glycine (Tums Extra Strength) 750 mg PO Q2H PRN PRN Reason: Indigestion Last Admin: 10/14/17 14:41 Dose: 750 mg Enoxaparin Sodium (Lovenox) 40 mg SUBCUT DAILY@1200 [facility] Last Admin: 10/15/17 13:09 Dose: 40 mg Promethazine HCl 6.25 mg/ (Sodium Chloride) 100.25 mls @ 398.785 mls/hr IV Q6H PRN PRN Reason: Nausea/Vomiting Last Admin: 10/14/17 09:35 Dose: 398.785 mls/hr Potassium Chloride/Dextrose/Sod Cl (D5 1/2 Ns W/ 20 Meq/L Kcl) 1,000 mls @ 75 mls/hr IV Q13H [facility] Last Admin: 10/15/17 19:04 Dose: 75 mls/hr Ketorolac Tromethamine (Toradol) 30 mg IVPUSH Q6H PRN PRN Reason: Pain Stop: 10/20/17 08:22 Last Admin: 10/16/17 05:14 Dose: 30 mg Metoclopramide HCl (Reglan) 5 mg IVPUSH Q6H PRN PRN Reason: Nausea Last Admin: 10/16/17 07:32 Dose: 5 mg Ondansetron HCl (Zofran) 8 mg IVPUSH Q8H PRN PRN Reason: Nausea/Vomiting Last Admin: 10/14/17 16:51 Dose: 8 mg Pantoprazole Sodium (Protonix Iv) 40 mg IVPUSH DAILY@2100 [facility] Last Admin: 10/15/17 21:00 Dose: 40 mg Discontinued Medications Hydrocodone Bitart/Acetaminophen ([place] 325-5 Mg) 1 tab PO Q4H PRN PRN Reason: Pain Last Admin: 10/15/17 05:42 Dose: 1 tab Calcium Carbonate/Glycine (Tums) Confirm Administered Dose 1,000 mg .ROUTE .STK- MED ONE Stop: 10/14/17 14:40 Last Admin: 10/14/17 14:48 Dose: Not Given Cefoxitin Sodium (Mefoxin) 2 gm IV ONETIME ONE Stop: 10/09/17 11:31 Last Admin: 10/09/17 14:04 Dose: Not Given Cefoxitin Sodium (Mefoxin) 2 gm IV .STK-MED ONE Stop: 10/09/17 11:46 Diatrizoate Meglum/Diatrizoate Sod (Gastrografin 37%) 30 ml PO . DIRECTED [facility] Last Admin: 10/08/17 18:22 Dose: 30 ml Fentanyl (Sublimaze) 200 mcg IV .STK-MED ONE Stop: 10/09/17 11:46 Glycopyrrolate (Glycopyrrolate) 0.4 mg IV .STK-MED ONE Stop: 10/09/17 11:46 Hydromorphone HCl (Dilaudid) 2 mg IV .STK-MED ONE Stop: 10/09/17 13:31 Sodium Chloride (Normal Saline) 1,000 mls @ 125 mls/hr IV ASDIRECTED [facility] Last Admin: 10/08/17 16:43 Dose: 125 mls/hr Potassium Chloride/Dextrose/Sod Cl (D5 Ns With 20 Meq Kcl) 1,000 mls @ 150 mls/ hr IV ASDIRECTED [facility] Last Admin: 10/09/17 03:27 Dose: 150 mls/hr Potassium Chloride/Dextrose/Sod Cl (D5 Ns With 20 Meq Kcl) 1,000 mls @ 125 mls/ hr IV Q6H [facility] Stop: 10/12/17 08:29 Last Admin: 10/12/17 08:37 Dose: Not Given Promethazine HCl 6.25 mg/ (Sodium Chloride) 50.25 mls @ 200 mls/hr IV Q6H PRN PRN Reason: Nausea/Vomiting Lactated Ringer's (Ringers, Lactated) 1,000 mls @ 0 mls/hr IV ASDIRECTED [facility] Last Admin: 10/09/17 14:17 Dose: 10 mls/hr Cefoxitin Sodium 2 gm/ Sodium (Chloride) 100 mls @ 200 mls/hr IV ONETIME ONE Stop: 10/09/17 11:59 Lactated Ringer's (Ringers, Lactated) 1,000 mls @ as directed IV .STK-MED ONE Stop: 10/09/17 11:46 Sodium Chloride (Normal Saline) 1,000 mls @ 250 mls/hr IV NOW STA Stop: 10/10/17 10:58 Last Admin: 10/10/17 07:27 Dose: 250 mls/hr Potassium Chloride/Dextrose/Sod Cl (D5 Ns With 20 Meq Kcl) 1,000 mls @ 125 mls/ hr IV Q8H [facility] Last Admin: 10/14/17 07:36 Dose: 125 mls/hr Potassium Chloride/Dextrose/Sod Cl (D5 1/2 Ns W/ 20 Meq/L Kcl) 1,000 mls @ 75 mls/hr IV ASDIRECTED [facility] Stop: 10/15/17 18:59 Last Admin: 10/15/17 05:42 Dose: 75 mls/hr Potassium Chloride/Dextrose/Sod Cl (D5 1/2 Ns W/ 20 Meq/L Kcl) Confirm Administered Dose 1,000 mls @ as directed .ROUTE .STK-MED ONE Stop: 10/14/17 16:38 Last Admin: 10/14/17 16:56 Dose: Not Given Iopamidol (Isovue-370 (76%)) 75 ml IV ONETIME ONE Stop: 10/08/17 17:23 Last Admin: 10/08/17 18:22 Dose: 75 ml Ketorolac Tromethamine (Toradol) 30 mg IVPUSH Q6H PRN PRN Reason: Pain (moderate 4-6) Stop: 10/13/17 20:22 Last Admin: 10/13/17 17:07 Dose: 30 mg Lidocaine HCl (Xylocaine 2% Jelly) Confirm Administered Dose 5 ml .ROUTE .STK- MED ONE Stop: 10/08/17 20:01 Last Admin: 10/08/17 20:35 Dose: Not Given Lidocaine HCl (Xylocaine 2% Jelly) 5 ml MUCMEM NOW STA Stop: 10/08/17 20:01 Last Admin: 10/08/17 20:00 Dose: 5 ml Midazolam HCl (Versed 1 Mg/Ml) 2 mg IV .STK-MED ONE Stop: 10/09/17 11:46 Morphine Sulfate (Morphine) 2 mg IVPUSH Q1H PRN PRN Reason: PAIN Last Admin: 10/15/17 00:26 Dose: 2 mg Neostigmine Methylsulfate (Neostigmine Methylsulfate) 2 mg IVPUSH .STK-MED ONE Stop: 10/09/17 11:46 Ondansetron HCl (Zofran) 8 mg IVPUSH ONETIME ONE Stop: 10/08/17 16:30 Last Admin: 10/08/17 16:35 Dose: 8 mg Ondansetron HCl (Zofran) 4 mg IVPUSH ONETIME ONE Stop: 10/09/17 10:31 Last Admin: 10/09/17 11:17 Dose: 4 mg Ondansetron HCl (Zofran) 4 mg IVPUSH .STK-MED ONE Stop: 10/09/17 11:46 Pantoprazole Sodium (Protonix Iv) 40 mg IVPUSH DAILY [facility] Last Admin: 10/08/17 20:23 Dose: 40 mg Propofol (Diprivan 20 Ml) 300 mg IV .STK-MED ONE Stop: 10/09/17 11:46 Rocuronium [place] (Zemuron) 50 mg IV .STK-MED ONE Stop: 10/09/17 11:46 Scopolamine (Transderm-Scop) 1.5 mg TRDERM Q72H PRN PRN Reason: Nausea Scopolamine (Transderm-Scop) 1.5 mg TRDERM ONETIME ONE Stop: 10/09/17 10:31 Last Admin: 10/09/17 10:42 Dose: 1.5 mg Sodium Chloride (Saline Flush) 10 ml FLUSH ASDIRECTED PRN PRN Reason: Keep Vein Open Last Admin: 10/08/17 16:35 Dose: 10 ml - Exam Wound/Incisions: Healing Well, Dressing Dry and Intact General: Alert, Oriented GI/Abdominal Exam: Soft, Non-Tender, Distended (minimal) - Problem List Review Problem List Initiated/Reviewed/Updated: Yes - My Orders Last 24 Hours: Active Orders 24 hr Category Date Time Status Clear Liquid Diet [DIET] Diet 10/15/17 Dinner Active D5 1/2 NS w/ 20 mEq/L KCl 1,000 ml Med 10/15/17 19:00 Active IV Q13H Ketorolac [Toradol] Med 10/15/17 08:21 Active 30 mg IVPUSH Q6H PRN Metoclopramide [Reglan] Med 10/15/17 09:49 Active 5 mg IVPUSH Q6H PRN Medication Orders Calcium Carbonate/Glycine (Tums Extra Strength) 750 mg PO Q2H PRN PRN Reason: Indigestion Last Admin: 10/14/17 14:41 Dose: 750 mg Enoxaparin Sodium (Lovenox) 40 mg SUBCUT DAILY@1200 [facility] Last Admin: 10/15/17 13:09 Dose: 40 mg Admin: 10/14/17 11:42 Dose: 40 mg Admin: 10/13/17 11:31 Dose: 40 mg Admin: 10/12/17 13:15 Dose: 40 mg Admin: 10/11/17 12:01 Dose: 40 mg Admin: 10/10/17 13:13 Dose: 40 mg Promethazine HCl 6.25 mg/ (Sodium Chloride) 100.25 mls @ 398.785 mls/hr IV Q6H PRN PRN Reason: Nausea/Vomiting Last Admin: 10/14/17 09:35 Dose: 398.785 mls/hr Admin: 10/13/17 18:56 Dose: 398.785 mls/hr Admin: 10/09/17 10:45 Dose: 398.785 mls/hr Potassium Chloride/Dextrose/Sod Cl (D5 1/2 Ns W/ 20 Meq/L Kcl) 1,000 mls @ 75 mls/hr IV Q13H [facility] Last Admin: 10/15/17 19:04 Dose: 75 mls/hr Ketorolac Tromethamine (Toradol) 30 mg IVPUSH Q6H PRN PRN Reason: Pain Stop: 10/20/17 08:22 Last Admin: 10/16/17 05:14 Dose: 30 mg Metoclopramide HCl (Reglan) 5 mg IVPUSH Q6H PRN PRN Reason: Nausea Last Admin: 10/16/17 07:32 Dose: 5 mg Admin: 10/15/17 16:25 Dose: 5 mg Admin: 10/15/17 10:12 Dose: 5 mg Ondansetron HCl (Zofran) 8 mg IVPUSH Q8H PRN PRN Reason: Nausea/Vomiting Last Admin: 10/14/17 16:51 Dose: 8 mg Pantoprazole Sodium (Protonix Iv) 40 mg IVPUSH DAILY@2100 [facility] Last Admin: 10/15/17 21:00 Dose: 40 mg Admin: 10/14/17 21:10 Dose: 40 mg Admin: 10/13/17 21:22 Dose: 40 mg Admin: 10/12/17 21:23 Dose: 40 mg Admin: 10/11/17 21:25 Dose: 40 mg Admin: 10/10/17 20:43 Dose: 40 mg Admin: 10/09/17 21:14 Dose: 40 mg - Assessment Assessment (Free Text/Narrative):: Cont to improve - Plan Plan (Free Text/Narrative):: Will advance diet Maybe discharge tomorrow
[2017-10-16] MEDS: D5 1/2 NS w/ 20 mEq/L KCl 1,000 ML IV SCH ×2 (09:25→23:51)
[2017-10-16] MEDS: Enoxaparin 40 MG/0.4 ML Syringe SUBCUT SCH (11:28)
[2017-10-16] MEDS: Pantoprazole 40 MG Vial IVPUSH SCH (22:59)
[2017-10-17] MEDS: Enoxaparin 40 MG/0.4 ML Syringe SUBCUT SCH (12:33)
--- NOTE | 2017-10-17 13:02 | PCM.SURGPN ---
- General Info Date of Service: 10/17/17 POD#: 8 Functional Status: Reports: Pain Controlled, Tolerating Diet, Ambulating - Review of Systems General: Reports: No Symptoms Gastrointestinal: Reports: No Symptoms, Flatus Genitourinary: Reports: No Symptoms - Patient Data Vitals - Most Recent: Last Vital Signs Temp 98 F 10/17/17 02:30 Pulse 93 10/17/17 02:30 Resp 18 10/17/17 02:30 BP 115/64 10/17/17 02:30 Pulse Ox 96 10/17/17 02:30 Weight - Most Recent: 51.846 kg I&O - Last 24 Hours: Intake & Output 10/16/17 10/17/17 10/17/17 22:59 06:59 14:59 Intake Total 690 585 Output Total 400 400 Balance 290 185 Med Orders - Current: Current Medications Calcium Carbonate/Glycine (Tums Extra Strength) 750 mg PO Q2H PRN PRN Reason: Indigestion Last Admin: 10/14/17 14:41 Dose: 750 mg Enoxaparin Sodium (Lovenox) 40 mg SUBCUT DAILY@1200 [facility] Last Admin: 10/17/17 12:33 Dose: 40 mg Promethazine HCl 6.25 mg/ (Sodium Chloride) 100.25 mls @ 398.785 mls/hr IV Q6H PRN PRN Reason: Nausea/Vomiting Last Admin: 10/14/17 09:35 Dose: 398.785 mls/hr Potassium Chloride/Dextrose/Sod Cl (D5 1/2 Ns W/ 20 Meq/L Kcl) 1,000 mls @ 75 mls/hr IV Q13H [facility] Last Admin: 10/16/17 23:51 Dose: 75 mls/hr Ketorolac Tromethamine (Toradol) 30 mg IVPUSH Q6H PRN PRN Reason: Pain Stop: 10/20/17 08:22 Last Admin: 10/16/17 05:14 Dose: 30 mg Metoclopramide HCl (Reglan) 5 mg IVPUSH Q6H PRN PRN Reason: Nausea Last Admin: 10/16/17 16:00 Dose: 5 mg Ondansetron HCl (Zofran) 8 mg IVPUSH Q8H PRN PRN Reason: Nausea/Vomiting Last Admin: 10/14/17 16:51 Dose: 8 mg Pantoprazole Sodium (Protonix Iv) 40 mg IVPUSH DAILY@2100 [facility] Last Admin: 10/16/17 22:59 Dose: 40 mg Discontinued Medications Hydrocodone Bitart/Acetaminophen ([place] 325-5 Mg) 1 tab PO Q4H PRN PRN Reason: Pain Last Admin: 10/15/17 05:42 Dose: 1 tab Calcium Carbonate/Glycine (Tums) Confirm Administered Dose 1,000 mg .ROUTE .STK- MED ONE Stop: 10/14/17 14:40 Last Admin: 10/14/17 14:48 Dose: Not Given Cefoxitin Sodium (Mefoxin) 2 gm IV ONETIME ONE Stop: 10/09/17 11:31 Last Admin: 10/09/17 14:04 Dose: Not Given Cefoxitin Sodium (Mefoxin) 2 gm IV .STK-MED ONE Stop: 10/09/17 11:46 Diatrizoate Meglum/Diatrizoate Sod (Gastrografin 37%) 30 ml PO . DIRECTED [facility] Last Admin: 10/08/17 18:22 Dose: 30 ml Fentanyl (Sublimaze) 200 mcg IV .STK-MED ONE Stop: 10/09/17 11:46 Glycopyrrolate (Glycopyrrolate) 0.4 mg IV .STK-MED ONE Stop: 10/09/17 11:46 Hydromorphone HCl (Dilaudid) 2 mg IV .STK-MED ONE Stop: 10/09/17 13:31 Sodium Chloride (Normal Saline) 1,000 mls @ 125 mls/hr IV ASDIRECTED [facility] Last Admin: 10/08/17 16:43 Dose: 125 mls/hr Potassium Chloride/Dextrose/Sod Cl (D5 Ns With 20 Meq Kcl) 1,000 mls @ 150 mls/ hr IV ASDIRECTED [facility] Last Admin: 10/09/17 03:27 Dose: 150 mls/hr Potassium Chloride/Dextrose/Sod Cl (D5 Ns With 20 Meq Kcl) 1,000 mls @ 125 mls/ hr IV Q6H [facility] Stop: 10/12/17 08:29 Last Admin: 10/12/17 08:37 Dose: Not Given Promethazine HCl 6.25 mg/ (Sodium Chloride) 50.25 mls @ 200 mls/hr IV Q6H PRN PRN Reason: Nausea/Vomiting Lactated Ringer's (Ringers, Lactated) 1,000 mls @ 0 mls/hr IV ASDIRECTED [facility] Last Admin: 10/09/17 14:17 Dose: 10 mls/hr Cefoxitin Sodium 2 gm/ Sodium (Chloride) 100 mls @ 200 mls/hr IV ONETIME ONE Stop: 10/09/17 11:59 Lactated Ringer's (Ringers, Lactated) 1,000 mls @ as directed IV .STK-MED ONE Stop: 10/09/17 11:46 Sodium Chloride (Normal Saline) 1,000 mls @ 250 mls/hr IV NOW STA Stop: 10/10/17 10:58 Last Admin: 10/10/17 07:27 Dose: 250 mls/hr Potassium Chloride/Dextrose/Sod Cl (D5 Ns With 20 Meq Kcl) 1,000 mls @ 125 mls/ hr IV Q8H [facility] Last Admin: 10/14/17 07:36 Dose: 125 mls/hr Potassium Chloride/Dextrose/Sod Cl (D5 1/2 Ns W/ 20 Meq/L Kcl) 1,000 mls @ 75 mls/hr IV ASDIRECTED [facility] Stop: 10/15/17 18:59 Last Admin: 10/15/17 05:42 Dose: 75 mls/hr Potassium Chloride/Dextrose/Sod Cl (D5 1/2 Ns W/ 20 Meq/L Kcl) Confirm Administered Dose 1,000 mls @ as directed .ROUTE .STK-MED ONE Stop: 10/14/17 16:38 Last Admin: 10/14/17 16:56 Dose: Not Given Iopamidol (Isovue-370 (76%)) 75 ml IV ONETIME ONE Stop: 10/08/17 17:23 Last Admin: 10/08/17 18:22 Dose: 75 ml Ketorolac Tromethamine (Toradol) 30 mg IVPUSH Q6H PRN PRN Reason: Pain (moderate 4-6) Stop: 10/13/17 20:22 Last Admin: 10/13/17 17:07 Dose: 30 mg Lidocaine HCl (Xylocaine 2% Jelly) Confirm Administered Dose 5 ml .ROUTE .STK- MED ONE Stop: 10/08/17 20:01 Last Admin: 10/08/17 20:35 Dose: Not Given Lidocaine HCl (Xylocaine 2% Jelly) 5 ml MUCMEM NOW STA Stop: 10/08/17 20:01 Last Admin: 10/08/17 20:00 Dose: 5 ml Midazolam HCl (Versed 1 Mg/Ml) 2 mg IV .STK-MED ONE Stop: 10/09/17 11:46 Morphine Sulfate (Morphine) 2 mg IVPUSH Q1H PRN PRN Reason: PAIN Last Admin: 10/15/17 00:26 Dose: 2 mg Neostigmine Methylsulfate (Neostigmine Methylsulfate) 2 mg IVPUSH .STK-MED ONE Stop: 10/09/17 11:46 Ondansetron HCl (Zofran) 8 mg IVPUSH ONETIME ONE Stop: 10/08/17 16:30 Last Admin: 10/08/17 16:35 Dose: 8 mg Ondansetron HCl (Zofran) 4 mg IVPUSH ONETIME ONE Stop: 10/09/17 10:31 Last Admin: 10/09/17 11:17 Dose: 4 mg Ondansetron HCl (Zofran) 4 mg IVPUSH .STK-MED ONE Stop: 10/09/17 11:46 Pantoprazole Sodium (Protonix Iv) 40 mg IVPUSH DAILY [facility] Last Admin: 10/08/17 20:23 Dose: 40 mg Propofol (Diprivan 20 Ml) 300 mg IV .STK-MED ONE Stop: 10/09/17 11:46 Rocuronium [place] (Zemuron) 50 mg IV .STK-MED ONE Stop: 10/09/17 11:46 Scopolamine (Transderm-Scop) 1.5 mg TRDERM Q72H PRN PRN Reason: Nausea Scopolamine (Transderm-Scop) 1.5 mg TRDERM ONETIME ONE Stop: 10/09/17 10:31 Last Admin: 10/09/17 10:42 Dose: 1.5 mg Sodium Chloride (Saline Flush) 10 ml FLUSH ASDIRECTED PRN PRN Reason: Keep Vein Open Last Admin: 10/08/17 16:35 Dose: 10 ml - Exam Wound/Incisions: Healing Well, Dressing Dry and Intact GI/Abdominal Exam: Soft, Non-Tender, Distended (still mild) - Problem List Review Problem List Initiated/Reviewed/Updated: Yes - My Orders Last 24 Hours: Medication Orders Calcium Carbonate/Glycine (Tums Extra Strength) 750 mg PO Q2H PRN PRN Reason: Indigestion Last Admin: 10/14/17 14:41 Dose: 750 mg Enoxaparin Sodium (Lovenox) 40 mg SUBCUT DAILY@1200 [facility] Last Admin: 10/17/17 12:33 Dose: 40 mg Admin: 10/16/17 11:28 Dose: 40 mg Admin: 10/15/17 13:09 Dose: 40 mg Admin: 10/14/17 11:42 Dose: 40 mg Admin: 10/13/17 11:31 Dose: 40 mg Admin: 10/12/17 13:15 Dose: 40 mg Admin: 10/11/17 12:01 Dose: 40 mg Admin: 10/10/17 13:13 Dose: 40 mg Promethazine HCl 6.25 mg/ (Sodium Chloride) 100.25 mls @ 398.785 mls/hr IV Q6H PRN PRN Reason: Nausea/Vomiting Last Admin: 10/14/17 09:35 Dose: 398.785 mls/hr Admin: 10/13/17 18:56 Dose: 398.785 mls/hr Admin: 10/09/17 10:45 Dose: 398.785 mls/hr Potassium Chloride/Dextrose/Sod Cl (D5 1/2 Ns W/ 20 Meq/L Kcl) 1,000 mls @ 75 mls/hr IV Q13H [facility] Last Admin: 10/16/17 23:51 Dose: 75 mls/hr Infusion: 10/16/17 22:45 Dose: 75 mls/hr Admin: 10/16/17 09:25 Dose: 75 mls/hr Infusion: 10/16/17 09:25 Dose: 75 mls/hr Admin: 10/15/17 19:04 Dose: 75 mls/hr Ketorolac Tromethamine (Toradol) 30 mg IVPUSH Q6H PRN PRN Reason: Pain Stop: 10/20/17 08:22 Last Admin: 10/16/17 05:14 Dose: 30 mg Metoclopramide HCl (Reglan) 5 mg IVPUSH Q6H PRN PRN Reason: Nausea Last Admin: 10/16/17 16:00 Dose: 5 mg Admin: 10/16/17 07:32 Dose: 5 mg Admin: 10/15/17 16:25 Dose: 5 mg Admin: 10/15/17 10:12 Dose: 5 mg Ondansetron HCl (Zofran) 8 mg IVPUSH Q8H PRN PRN Reason: Nausea/Vomiting Last Admin: 10/14/17 16:51 Dose: 8 mg Pantoprazole Sodium (Protonix Iv) 40 mg IVPUSH DAILY@2100 [facility] Last Admin: 10/16/17 22:59 Dose: 40 mg Admin: 10/15/17 21:00 Dose: 40 mg Admin: 10/14/17 21:10 Dose: 40 mg Admin: 10/13/17 21:22 Dose: 40 mg Admin: 10/12/17 21:23 Dose: 40 mg Admin: 10/11/17 21:25 Dose: 40 mg Admin: 10/10/17 20:43 Dose: 40 mg Admin: 10/09/17 21:14 Dose: 40 mg - Assessment Assessment (Free Text/Narrative):: Doing well - Plan Plan (Free Text/Narrative):: Ok to discharge
--- NOTE | 2017-10-17 13:07 | PCM.DCSUM1 ---
Discharge Summary - Hospital Course Free Text/Narrative:: Post op did well with return of bowel fct after several days, started on liquids and advanced which she is tolerating. Brief History: Presented to the ER with SBO not improved with NG suction by the next day, so took to OR for Expl Lap with adhesiolysis. - Discharge Data Discharge Date: 10/17/17 Discharge Disposition: Home, Self-Care 01 Condition: Good - Patient Summary/Data Operative Procedure(s) Performed: Expl Lap with Adhesiolysis Complications: none Recommended Follow-up Testing/Procedures: Dr Augustin Mon 10/22 for staple removal Hospital Course: as above - Patient Instructions Diet: Usual Diet as Tolerated Activity: No Lifting Over 20 Pounds (for 3 weeks) Showering/Bathing: September Shower Wound/Incision Care: Keep Operative Site/Wound Site Clean and Dry - Discharge Plan Home Medications: Home Meds Levothyroxine Sodium 50 mcg PO DAILY 06/06/13 [History] Omeprazole 20 mg PO DAILY 06/09/13 [History] Lisinopril 10 mg PO DAILY 10/08/17 [History] Ranitidine HCl [Ranitidine] 150 mg PO BID PRN 10/08/17 [History] Simvastatin [Zocor] 10 mg PO WITHDINNER 10/09/17 [History] Forms: ED Department Discharge, Take Home DC Nutrition Plan Referrals: Jadon Augustin MD [Primary Care Provider] - - Discharge Summary/Plan Comment DC Time >30 min.: No - Patient Data Vitals - Most Recent: Last Vital Signs Temp 98 F 10/17/17 02:30 Pulse 93 10/17/17 02:30 Resp 18 10/17/17 02:30 BP 115/64 10/17/17 02:30 Pulse Ox 96 10/17/17 02:30 Weight - Most Recent: 51.846 kg I&O - Last 24 hours: Intake & Output 10/16/17 10/17/17 10/17/17 22:59 06:59 14:59 Intake Total 690 585 Output Total 400 400 Balance 290 185 Med Orders - Current: Current Medications Calcium Carbonate/Glycine (Tums Extra Strength) 750 mg PO Q2H PRN PRN Reason: Indigestion Last Admin: 10/14/17 14:41 Dose: 750 mg Enoxaparin Sodium (Lovenox) 40 mg SUBCUT DAILY@1200 [facility] Last Admin: 10/17/17 12:33 Dose: 40 mg Promethazine HCl 6.25 mg/ (Sodium Chloride) 100.25 mls @ 398.785 mls/hr IV Q6H PRN PRN Reason: Nausea/Vomiting Last Admin: 10/14/17 09:35 Dose: 398.785 mls/hr Potassium Chloride/Dextrose/Sod Cl (D5 1/2 Ns W/ 20 Meq/L Kcl) 1,000 mls @ 75 mls/hr IV Q13H [facility] Last Admin: 10/16/17 23:51 Dose: 75 mls/hr Ketorolac Tromethamine (Toradol) 30 mg IVPUSH Q6H PRN PRN Reason: Pain Stop: 10/20/17 08:22 Last Admin: 10/16/17 05:14 Dose: 30 mg Metoclopramide HCl (Reglan) 5 mg IVPUSH Q6H PRN PRN Reason: Nausea Last Admin: 10/16/17 16:00 Dose: 5 mg Ondansetron HCl (Zofran) 8 mg IVPUSH Q8H PRN PRN Reason: Nausea/Vomiting Last Admin: 10/14/17 16:51 Dose: 8 mg Pantoprazole Sodium (Protonix Iv) 40 mg IVPUSH DAILY@2100 [facility] Last Admin: 10/16/17 22:59 Dose: 40 mg Discontinued Medications Hydrocodone Bitart/Acetaminophen ([place] 325-5 Mg) 1 tab PO Q4H PRN PRN Reason: Pain Last Admin: 10/15/17 05:42 Dose: 1 tab Calcium Carbonate/Glycine (Tums) Confirm Administered Dose 1,000 mg .ROUTE .STK- MED ONE Stop: 10/14/17 14:40 Last Admin: 10/14/17 14:48 Dose: Not Given Cefoxitin Sodium (Mefoxin) 2 gm IV ONETIME ONE Stop: 10/09/17 11:31 Last Admin: 10/09/17 14:04 Dose: Not Given Cefoxitin Sodium (Mefoxin) 2 gm IV .STK-MED ONE Stop: 10/09/17 11:46 Diatrizoate Meglum/Diatrizoate Sod (Gastrografin 37%) 30 ml PO . DIRECTED [facility] Last Admin: 10/08/17 18:22 Dose: 30 ml Fentanyl (Sublimaze) 200 mcg IV .STK-MED ONE Stop: 10/09/17 11:46 Glycopyrrolate (Glycopyrrolate) 0.4 mg IV .STK-MED ONE Stop: 10/09/17 11:46 Hydromorphone HCl (Dilaudid) 2 mg IV .STK-MED ONE Stop: 10/09/17 13:31 Sodium Chloride (Normal Saline) 1,000 mls @ 125 mls/hr IV ASDIRECTED [facility] Last Admin: 10/08/17 16:43 Dose: 125 mls/hr Potassium Chloride/Dextrose/Sod Cl (D5 Ns With 20 Meq Kcl) 1,000 mls @ 150 mls/ hr IV ASDIRECTED [facility] Last Admin: 10/09/17 03:27 Dose: 150 mls/hr Potassium Chloride/Dextrose/Sod Cl (D5 Ns With 20 Meq Kcl) 1,000 mls @ 125 mls/ hr IV Q6H [facility] Stop: 10/12/17 08:29 Last Admin: 10/12/17 08:37 Dose: Not Given Promethazine HCl 6.25 mg/ (Sodium Chloride) 50.25 mls @ 200 mls/hr IV Q6H PRN PRN Reason: Nausea/Vomiting Lactated Ringer's (Ringers, Lactated) 1,000 mls @ 0 mls/hr IV ASDIRECTED [facility] Last Admin: 10/09/17 14:17 Dose: 10 mls/hr Cefoxitin Sodium 2 gm/ Sodium (Chloride) 100 mls @ 200 mls/hr IV ONETIME ONE Stop: 10/09/17 11:59 Lactated Ringer's (Ringers, Lactated) 1,000 mls @ as directed IV .STK-MED ONE Stop: 10/09/17 11:46 Sodium Chloride (Normal Saline) 1,000 mls @ 250 mls/hr IV NOW STA Stop: 10/10/17 10:58 Last Admin: 10/10/17 07:27 Dose: 250 mls/hr Potassium Chloride/Dextrose/Sod Cl (D5 Ns With 20 Meq Kcl) 1,000 mls @ 125 mls/ hr IV Q8H [facility] Last Admin: 10/14/17 07:36 Dose: 125 mls/hr Potassium Chloride/Dextrose/Sod Cl (D5 1/2 Ns W/ 20 Meq/L Kcl) 1,000 mls @ 75 mls/hr IV ASDIRECTED [facility] Stop: 10/15/17 18:59 Last Admin: 10/15/17 05:42 Dose: 75 mls/hr Potassium Chloride/Dextrose/Sod Cl (D5 1/2 Ns W/ 20 Meq/L Kcl) Confirm Administered Dose 1,000 mls @ as directed .ROUTE .STK-MED ONE Stop: 10/14/17 16:38 Last Admin: 10/14/17 16:56 Dose: Not Given Iopamidol (Isovue-370 (76%)) 75 ml IV ONETIME ONE Stop: 10/08/17 17:23 Last Admin: 10/08/17 18:22 Dose: 75 ml Ketorolac Tromethamine (Toradol) 30 mg IVPUSH Q6H PRN PRN Reason: Pain (moderate 4-6) Stop: 10/13/17 20:22 Last Admin: 10/13/17 17:07 Dose: 30 mg Lidocaine HCl (Xylocaine 2% Jelly) Confirm Administered Dose 5 ml .ROUTE .STK- MED ONE Stop: 10/08/17 20:01 Last Admin: 10/08/17 20:35 Dose: Not Given Lidocaine HCl (Xylocaine 2% Jelly) 5 ml [facility]CM[facility] NOW STA Stop: 10/08/17 20:01 Last Admin: 10/08/17 20:00 Dose: 5 ml Midazolam HCl (Versed 1 Mg/Ml) 2 mg IV .STK-MED ONE Stop: 10/09/17 11:46 Morphine Sulfate (Morphine) 2 mg IVPUSH Q1H PRN PRN Reason: PAIN Last Admin: 10/15/17 00:26 Dose: 2 mg Neostigmine Methylsulfate (Neostigmine Methylsulfate) 2 mg IVPUSH .STK-MED ONE Stop: 10/09/17 11:46 Ondansetron HCl (Zofran) 8 mg IVPUSH ONETIME ONE Stop: 10/08/17 16:30 Last Admin: 10/08/17 16:35 Dose: 8 mg Ondansetron HCl (Zofran) 4 mg IVPUSH ONETIME ONE Stop: 10/09/17 10:31 Last Admin: 10/09/17 11:17 Dose: 4 mg Ondansetron HCl (Zofran) 4 mg IVPUSH .STK-MED ONE Stop: 10/09/17 11:46 Pantoprazole Sodium (Protonix Iv) 40 mg IVPUSH DAILY [facility] Last Admin: 10/08/17 20:23 Dose: 40 mg Propofol (Diprivan 20 Ml) 300 mg IV .STK-MED ONE Stop: 10/09/17 11:46 Rocuronium [place] (Zemuron) 50 mg IV .STK-MED ONE Stop: 10/09/17 11:46 Scopolamine (Transderm-Scop) 1.5 mg TRDERM Q72H PRN PRN Reason: Nausea Scopolamine (Transderm-Scop) 1.5 mg TRDERM ONETIME ONE Stop: 10/09/17 10:31 Last Admin: 10/09/17 10:42 Dose: 1.5 mg Sodium Chloride (Saline Flush) 10 ml FLUSH ASDIRECTED PRN PRN Reason: Keep Vein Open Last Admin: 10/08/17 16:35 Dose: 10 ml
== END 2017-10-17 16:30 | disposition home or self-care (01) | DRG 224 ==
LOC: FB.ED 15:47 → FB.MS 19:59
PROVIDERS: ADMIT Surgery; ATTEND Surgery
PROC: 0DN80ZZ Release Small Intestine, Open Approach (ICD-10-PCS; principal; 2017-10-09)
DX: K56.50 Intestinal adhesions [bands], unspecified as to partial versus complete obstruction (principal); I10 Essential (primary) hypertension; Z91.040 Latex allergy status; Z88.2 Allergy status to sulfonamides; Z79.899 Other long term (current) drug therapy
CPT/HCPCS: 36415; 43752; 71275; 74177; 80048; 80053; 81001; 83605; 83880; 84443; 84484; 85025; 85027; 85379; 86140; 86850; 86900; 86901; 93005; 96361; 96374; 96375; 99285; A9270-GY; C9113; J0694; J1170; J1650; J1885; J2250; J2270; J2405; J2550; J2704; J2710; J2765; J3010; J3480; J3490; J7030; J7050; J7120; Q9963; Q9967